=== PATIENT | male | born 1955 | race Caucasian/White ===

== ENCOUNTER 2019-10-22 18:58 | Emergency (ER) | payer MEDICAID, SELFPAY ==
[2019-10-22 18:58] VITALS: BP 113/88; PULSE 131; RESP 17; TEMP 38.2; O2SAT 94; BMI 21.8
--- NOTE | 2019-10-22 19:16 | EKG12_ITS ---
Test Reason : COUGH Blood Pressure : / mmHG Vent. Rate : 105 BPM Atrial Rate : 105 BPM P-R Int : 122 ms QRS Dur : 124 ms QT Int : 368 ms P-R-T Axes : 082 096 052 degrees QTc Int : 486 ms Sinus tachycardia Biatrial enlargement Right bundle branch block Abnormal ECG Confirmed by BATSHEVA SANTIAGO, SHIRA ([id number]), electronic news gathering editor DIANA RIZO ([id number] on 10/26/2019 3:45:45 PM Referred By: JUSTIN RINCON Confirmed By:SHIRA HERMAN MD
--- NOTE | 2019-10-22 19:23 | ED.RN ---
no old ekgs in [facility]
[2019-10-22] MEDS: Ipratropium/Albuterol Sulfate 3 ML AMPUL.NEB INHALATION (19:28)
[2019-10-22 19:29] VITALS: PULSE 111; RESP 18
[2019-10-22] MEDS: MethylPREDNISolone 125 MG/2 ML Vial IV (19:44)
[2019-10-22] MEDS: Ondansetron 4 MG/2 ML Vial IV (19:44)
[2019-10-22] MEDS: Morphine 4 MG/ML Syringe IV (19:44)
[2019-10-22] MEDS: 0.9% Normal Saline 1,000 ML 999 ML IV (19:47)
[2019-10-22 19:50] LABS: Absolute Lymphocyte Count 0.92 X10^3/uL (0.83-4.51); Absolute Neutrophil Count 3.9 X10^3/uL (2.0-7.7); Basophil# 0.01 X10^3/uL; Basophil% 0.2 % (0-1); Hematocrit 44.5 % (40-54); Hemoglobin 14.8 g/dL (13.0-16.5); Lymphocyte # 0.92 X10^3/ul (4.0); Lymphocyte % 17.8 % (19-41); Mean Corp Hgb Conc 33.3 g/dL (32-36); Mean Corpuscular Hgb 29.5 pg (27.0-32.0); Mean Corpuscular Volume 88.8 fL (80-94); Mean Platelet Vol. 11.3 fl (6.2-12.0); Monocyte# 0.38 X10^3/uL; Monocyte% 7.3 % (0-10); NRBC Flagged by Analyzer 0 % (0-5); Neutrophil # 3.85 X10^3/uL (2.7-7.7); Neutrophil % 74.3 % (47-70); POSITIVE MORPHOLOGY YES; Platelet Count 137 K/mm3 (150-450); RBC Distribution Width CV 14.6 % (11.6-14.6); RBC Distribution Width SD 47.8 fl (35.1-43.9); Red Blood Count 5.01 M/mm3 (4.6-6.2); White Blood Count 5.2 K/mm3 (4.4-11.0)
[2019-10-22 19:53] LABS: Differential Indicated SCAN CRITERIA MET
--- NOTE | 2019-10-22 20:10 | RAD_ITS ---
STUDY: X-RAY CHEST REASON FOR EXAM: Male, 63 years old. PT ARRIVES TO ED WITH FLU LIKE S/S. COUGH, SINUS CONGESTION, AND SORE THROAT. TECHNIQUE: Frontal and lateral views COMPARISON: None. FINDINGS: The lungs are clear and expanded. There is no demonstrated pleural abnormality. Normal size heart. Normal mediastinum and akhil. Normal visualized pulmonary arteries. Normal visualized aortic arch and descending thoracic aorta. Normal visualized thoracic spine. Normal visualized ribs, clavicles, and shoulders. There is no demonstrated abnormality of the visualized soft tissue structures of the upper abdomen. RAD/Chest PA and Lateral IMPRESSION: Normal x-ray examination of the chest. Electronically Signed: Max Navarrete DO at 20:27 EST Tel [phone], Service support ,
[2019-10-22 20:11] LABS: Anion Gap 8 (5-15); BUN 22 mg/dL (7-18); BUN/Creat Ratio 18.8 RATIO (10-20); Calcium,Total 9.1 mg/dL (8.5-10.1); Chloride 101 mmol/L (98-107); Creatinine, Serum 1.17 mg/dL (0.70-1.30); EST Glomerular Filtration Rate 67 mL/min (>60); Est Glom Filt Rate - Afr Amer 81 mL/min (>60); Estimated Creatinine Clearance 61.24 ml/min; Glucose 196 mg/dL (74-106); Sodium Level 135 mmol/L (136-145)
[2019-10-22 20:28] LABS: Platelet Estimate ADEQUATE (ADEQ); Red Cell Morphology NORM C+C NORMAL (NORM C&C)
--- NOTE | 2019-10-22 20:43 | ED.VISSUMM ---
- ER Visit Summary Date of Service: 10/22/19 Chief Complaint: Cough History of Present Illness: The patient is a [address] Dhaliwal. He reports he has a cough began 2 days ago. He denies any fever or chills. However he has had diffuse myalgias. Reports cough is nonproductive. Does report he has mild shortness of breath is relieved with his albuterol. He also has a headache that is 8 out of 10 in severity and a sore throat that is from coughing. Physical Examination: Vitals: Stable. Afebrile. General: Well-nourished and well-developed. Head: Normocephalic atraumatic. Neck: Supple, no lymphadenopathy. No JVD. Nontender. Cardiovascular: Regular rate and rhythm. No murmurs. Respiratory: No respiratory distress. Mild wheezing bilaterally with good air movement. Abdominal: Soft, nontender, nondistended, normal bowel sounds. No guarding, rebound, or peritoneal signs. Back: Nontender. Extremities: Nontender, no edema. Skin: Normal color, no rash. Neurologic: Alert and oriented ?3. Cranial nerves II through XII are intact. Normal strength and sensation. Psych: Normal affect. Test Results: EKG sinus tach [address] changes and bilateral atrial enlargement. Troponin is negative. He is positive for influenza A. Lactic acid is 2.0. Chem-7 shows sodium 135, BUN 22, glucose 196. CBC shows platelets 137, segmented for 74, lymphocytes of 18. Chest x-ray is normal. Emergency Department Course and Treatment: Patient was given a liter of normal saline. He was given a albuterol and Atrovent aerosol. He was given Solu-Medrol IV. He is given morphine IV and Zofran IV. He is resting more comfortably. He is given Tamiflu p.o. Treatment Plan: Patient be discharged on Tamiflu and prednisone. Instructed to follow-up with his primary care physician 1 week if not improving. Return to the emergency department for any worsening symptoms. Disposition: To home in improved and stable condition. Impression: 1. Influenza A. 2. COPD. This note was generated with [employer] software. It may contain incorrect words, spelling, and punctuation that were not noted in review of the chart prior to signing ED Disposition - Plan for ED Patient: Disposition: Home or Assisted Living Instructions: INFLUENZA (Adult) Prescriptions: Prednisone [Deltasone] 60 mg PO DAILY #15 tab Prescription Printed Oseltamivir Phosphate [Tamiflu] 75 mg PO BID #10 cap Prescription Printed Referrals: Jamir Dhaliwal [Primary Care Provider] - 1 Week if not improving
[2019-10-22] MEDS: Oseltamivir Phosphate 75 MG Capsule PO (21:03)
[2019-10-22 21:04] VITALS: BP 112/73; PULSE 97; RESP 18; O2SAT 93
== END 2019-10-22 21:12 | disposition home or self-care (01) ==
LOC: ED 19:27
PROVIDERS: Emergency Provider Emergency Medicine
DX: J11.1 Influenza due to unidentified influenza virus with other respiratory manifestations (principal); J44.9 Chronic obstructive pulmonary disease, unspecified; E11.9 Type 2 diabetes mellitus without complications; Z79.84 Long term (current) use of oral hypoglycemic drugs; Z79.01 Long term (current) use of anticoagulants; Z72.0 Tobacco use
CPT/HCPCS: 36415; 71046; 80048; 83605; 84484; 85025; 87040; 87804; 93005; 94640; 96361; 96374; 96375; 99285; J7030; A4216; J2405

== ENCOUNTER 2023-02-06 11:15 | Emergency (ER) | payer MEDICARE, MEDICAID, SELFPAY ==
[2023-02-06 11:16] VITALS: BP 147/78; PULSE 95; RESP 16; TEMP 36.2; O2SAT 100; BMI 19.6
--- NOTE | 2023-02-06 11:45 | RAD_ITS ---
STUDY: X-RAY - RIGHT SHOULDER REASON FOR EXAM: Male, 67 years old. pain TECHNIQUE: 4 view(s) of the shoulder. COMPARISON: None. FINDINGS: There is mild degenerative arthrosis of the glenohumeral articulation. There is degenerative arthrosis of the acromioclavicular joint without inferior osseous spur formation. Normal acromion. Normal humeral head and visualized proximal humerus. The soft tissue structures are unremarkable. Normal visualized pulmonary apex. RAD/Shoulder min 2 Views IMPRESSION: Mild, age consistent degenerative changes, no acute findings Electronically Signed: Albert Hennessy MD at 12:05 EDT ,
[2023-02-06] MEDS: Ketorolac 10 MG Tablet PO (12:53)
--- NOTE | 2023-02-06 13:23 | EX.ED.UPPERE ---
HPI History of Present Illness Chief Complaint: Upper Extremity Injury Narrative Narrative: 67-year-old male presenting with right shoulder pain. He states it is nontraumatic in nature. Has had it for weeks. He states he woke up with it one day. He describes it as burning. It radiates from the trapezius into the deltoid region. He states he has limited range of motion secondary to pain. He states he just saw his PCP about a week ago and had an injection into the shoulder and he states it lasted about an hour. Patient states that he does not use ibuprofen because he is on blood thinners. Patient also states he does not use Tylenol because he states it does not work. When asked what other pain medications the patient has tried he states none. He also states he is not on any other pain medications. PFSH PFSH Medical History no medical history Home Medications apixaban 5 mg tablet (Eliquis) 5 mg PO BID 03/02/17 [History Last Taken Unknown] albuterol sulfate 90 mcg/actuation aerosol inhaler 1 - 2 puff inhalation Q6H PRN PRN COPD 10/22/19 [History Last Taken Unknown] glimepiride 2 mg tablet 2 mg PO DAILY 10/22/19 [History Last Taken Unknown] metformin 500 mg tablet 500 mg PO BID 10/22/19 [History Last Taken Unknown] oseltamivir 75 mg capsule 75 mg PO BID #10 caps 10/22/19 [Rx Last Taken Unknown] pioglitazone 45 mg tablet 45 mg PO DAILY 10/22/19 [History Last Taken Unknown] prednisone 20 mg tablet 60 mg PO DAILY #15 tabs 10/22/19 [Rx Last Taken Unknown] tiotropium bromide 18 mcg capsule with inhalation device 1 puff inhalation DAILY 10/22/19 [History Last Taken Unknown] Allergy/AdvReac Type Severity Reaction Status Date / Time tramadol Allergy Other Verified 02/06/23 11:17 Surgical History no surgical history Social History Smoking Status: Current every day smoker tobacco type: cigarettes ROS ROS ED Review of Systems ROS Unobtainable: Denies due to encephalopathy Constitutional Constitutional ED: Denies chills or fever(s) Eyes Eyes: Denies change in vision or diplopia ENT ENT ED: Denies rhinorrhea or sore throat Cardiovascular Cardiovascular: Denies chest pain or palpitations Respiratory/Chest Respiratory/Chest: Denies cough or dyspnea Gastrointestinal Gastrointestinal: Denies abdominal pain, constipation or diarrhea Genitourinary Genitourinary ED: Denies dysuria or hematuria Musculoskeletal Musculoskeletal: Reports other Details: Right shoulder pain Integumentary Denies abscess or Abrasions EXAM Physical Exam Const Vital Signs: 02/06/23 11:16 Temperature 97.1 F L Temperature Source Temporal Pulse Rate 95 Respiratory Rate 16 Blood Pressure 147/78 H Blood Pressure Mean 101 Pulse Ox 100 Oxygen Delivery Method Room Air Positive well nourished General Appearance ED: NAD HEENT Reports moist mucous membranes normocephalic and atraumatic Eyes PERRL Chest Wall inspection of chest normal Resp normal respiratory effort and clear to auscultation bilaterally Cardio regular rate and regular rhythm Extremity Extremity Narrative: Tenderness to palpation over the right deltoid. Patient able to flex and extend the shoulder. He has pain with abduction and and stops about mcc up with his elbow secondary to pain. Tenderness to palpation in the right trapezius. No midline cervical spinal tenderness, deformity, step-off. Neuro oriented x3 and CN's II-XII intact bilaterally Sensorium / Orientation: alert Motor Exam: strength 5/5 throughout Psych mental status grossly normal MDM MDM MDM Narrative Medical decision making narrative: Patient presenting with right shoulder pain. He states he is not on any chronic pain medications. He can only name a couple of his medicines for home. He states he is diabetic. His exam is difficult because he refuses to try to move his arm although he can flex and extend it well. Abduction seems to hurt however he mostly just holds this to his side. Since he could not tell me his medications I went to review them and his [facility] report shows that he gets buprenorphine from a pain management doctor named Esther Rice. I would like to discuss this with the patient and he became angry at me stating I came in here for my shoulder pain and you cannot help me. I explained to them that he is in pain management and I would need them to be involved in order to write him prescriptions for anything. I did give him a shot of Toradol. I paged his automotive paint technician. I spoke with Dr. Rice at 2:15 PM however I was told that the patient had just walked out. I went over the case with his automotive paint technician. She states that he had not called her at all over the last 3 weeks for any kind of pain medicine or treatment. She recommended that if he walked out then she will wait for his call and did not recommend ordering him anything. Impression: 1. Right shoulder pain Lab Data Attestation: I reviewed the patient's lab results. Radiography Diagnostic Testing: Clinical Impression(s) from Imaging Studies Shoulder X-Ray 02/06/23 11:45 IMPRESSION: Mild, age consistent degenerative changes, no acute findings Electronically Signed: Albert Hennessy MD at 12:05 EDT , Discharge Plan Triage Chief Complaint: Upper Extremity Injury ED Provider: Shad Andres Dx/Rx/DC Orders Prescriptions: No Action apixaban [Eliquis] 5 MG tablet 5 mg PO BID metformin 500 MG tablet 500 mg PO BID pioglitazone 45 MG tablet 45 mg PO DAILY glimepiride 2 MG tablet 2 mg PO DAILY albuterol sulfate 1 INHALER inhaler 1 - 2 puff inhalation Q6H PRN PRN (Reason: COPD) tiotropium bromide 1 PUFF inhaler 1 puff inhalation DAILY prednisone 20 MG tablet 60 mg PO DAILY Qty: 15 0RF Rx Instructions: With food oseltamivir 75 MG capsule 75 mg PO BID Qty: 10 0RF Primary Care Provider: RENEA CORTES Referrals: RENEA CORTES [Other]
--- NOTE | 2023-02-06 14:11 | ED.RN ---
1400: Patient states he's leaving. Dr. Andres notified.
--- NOTE | 2023-02-06 14:16 | ED.RN ---
THIS RN MADE AWARE BY PERSONNEL PSYCHOLOGIST THAT PT STANDING IN HIS DOORWAY THREATENING TO LEAVE. THIS RN ROUNDS TO PT ROOM, WHERE ROOM IS EMPTY AND PT IS NO LONGER PRESENT. DR. AGUSTIN AWARE.
== END 2023-02-06 14:33 | disposition left against medical advice (07) ==
PROVIDERS: Emergency Provider Student in an Organized Health Care Education/Training Program; Visit Provider Student in an Organized Health Care Education/Training Program
DX: M25.511 Pain in right shoulder (principal); F17.210 Nicotine dependence, cigarettes, uncomplicated
CPT/HCPCS: 73030

== ENCOUNTER 2023-02-16 00:13 | Emergency (ER) | payer MEDICARE, MEDICAID, SELFPAY ==
[2023-02-16 00:16] VITALS: BP 140/70; PULSE 97; RESP 18; TEMP 36.5; O2SAT 96; BMI 18.8
--- NOTE | 2023-02-16 00:47 | CT_ITS ---
We are attempting to reach an attending provider to discuss findings. An addendum with communication details will be sent when the communication is complete. STUDY: CT BRAIN WITHOUT CONTRAST REASON FOR EXAM: Male, 67 years old. Head injury RADIATION DOSAGE (If Supplied By Facility): CTDIvol = ( 44.99 ) mGy, DLP = ( 779.24 ) mGycm TECHNIQUE: Transaxial CT imaging of the brain was performed without administration of intravenous contrast material. Individualized dose optimization techniques were used for this CT. COMPARISON: No relevant priors. FINDINGS: Normal soft tissue structures. Normal calvarium. There is mild cerebral atrophy with widening of the extra-axial spaces and ventricular dilatation. There are areas of decreased attenuation within the white matter tracts of the supratentorial brain, consistent with microvascular disease changes. There is a hyperdense appearance of the right-sided basal ganglia with surrounding edema which appears to be age-indeterminate possible evolving and/or chronic. There is low-attenuation within the right temporal lobe suggesting age-indeterminate edema possible evolving subacute ischemic change. There is effacement of the right side caudate and right frontal horn. Normal brainstem. Normal cerebellum. Normal visualized paranasal sinuses. There is minimal fluid thickening of the right greater than left mastoid air cells. There is dense bilateral external auditory canal cerumen. At the level of the vertebral body C1 there are at least 2 bubbles of gas suggesting probable venous gas possibly associated with IV placement. CT/Brain/Head without Contrast IMPRESSION: Findings is suspicious for 3.3 x 1.7 nonacute age-indeterminate possible evolving right basal ganglia hemorrhage with effacement of the right side frontal horns. There is also low attenuation within the anterior aspect of the temporal lobe which may represent evolving edema and are potentially prior ischemic change. Recommend correlation with any history of hypertension potentially this could represent a hypertensive bleed. Multifocal low attenuation within the basal ganglia compatible with small vessel ischemic change. Electronically Signed: Audra Love MD at 2:15 EDT ,
[2023-02-16 01:07] LABS: Absolute Lymphocyte Count 0.65 X10^3/uL (0.83-4.51); Absolute Neutrophil Count 4.7 X10^3/uL (2.0-7.7); Hematocrit 40.2 % (40-54); Hemoglobin 12.9 g/dL (13.0-16.5); Lymphocyte # 0.65 X10^3/ul (0.83-4.51); Lymphocyte % 11.4 % (19-41); Mean Corp Hgb Conc 32.1 g/dL (32-36); Mean Corpuscular Volume 84.3 fL (80-94); Mean Platelet Vol. 11.8 fl (6.2-12.0); Monocyte# 0.32 X10^3/uL; Monocyte% 5.6 % (0-10); NRBC Flagged by Analyzer 0 % (0-5); Neutrophil # 4.69 X10^3/uL (2.7-7.7); Neutrophil % 82.5 % (47-70); Platelet Count 170 K/mm3 (150-450); RBC Distribution Width CV 15.2 % (11.6-14.6); RBC Distribution Width SD 46.7 fl (35.1-43.9); Red Blood Count 4.77 M/mm3 (4.6-6.2); White Blood Count 5.7 K/mm3 (4.4-11.0)
[2023-02-16] MEDS: 0.9% Normal Saline 1,000 ML 999 ML IV (01:07)
--- NOTE | 2023-02-16 01:20 | RAD_ITS ---
STUDY: X-RAY - PELVIS REASON FOR EXAM: Male, 67 years old. Pain TECHNIQUE: One view of the pelvis was obtained. COMPARISON: None. FINDINGS: There is a non-specific bowel gas pattern. Partially visualized IVC filter. Normal bilateral iliac wings, sacroiliac joints and visualized sacrum. Normal visualized bilateral superior and inferior pubic rami. Normal pubic symphysis. Normal ischial tuberosities. Normal visualized right femoral head. Normal right acetabulum. Normal right hip joint. Normal visualized left femoral head. Normal left acetabulum. Normal left hip joint. There is a metallic device projected over the left proximal femur. RAD/Pelvis 1 or 2 Views IMPRESSION: No visualized acute fracture. Electronically Signed: Audra Love MD at 1:36 EDT ,
[2023-02-16 01:21] LABS: Anion Gap 15 (5-15); BUN 51 mg/dL (7-18); Calcium,Total 9.9 mg/dL (8.5-10.1); Chloride 98 mmol/L (98-107); Creatinine, Serum 1.76 mg/dL (0.70-1.30); EST Glomerular Filtration Rate 41 mL/min (>60); Est Glom Filt Rate - Afr Amer 50 mL/min (>60); Glucose 316 mg/dL (74-106); Potassium 4.1 mmol/L (3.5-5.1); Sodium Level 132 mmol/L (136-145)
[2023-02-16 02:48] LABS: International Normalized Ratio 1.5; Prothrombin Time (Protime)PT. 17.7 SECONDS (11.7-14.9)
[2023-02-16 03:02] VITALS: BP 121/71; PULSE 77; RESP 18; O2SAT 97
--- NOTE | 2023-02-16 03:51 | EX.ED.DYSGE1 ---
HPI History of Present Illness Chief Complaint: Fall Informant: patient Narrative Narrative: Patient is a 67-year-old male with past medical history of protein C&S deficiency currently on Eliquis as well as type 2 diabetes. He states around 1130 this evening he was putting his phone down in his living room when he turned and lost his balance and fell to the ground. He denies striking his head or any loss of consciousness. He states he could not get back up however and likely a friend came by roughly 10 minutes later who was able to help him up and help him into the emergency department. Patient reports pain in his elbows at this time but otherwise denies any headache change in vision nausea or vomiting but with the fall and the fact he is on a blood thinner presents for evaluation. [facility] Medical History Diabetes mellitus, type 2 History of DVT (deep vein thrombosis) Protein S deficiency Medical History unable to obtain Home Medications apixaban 5 mg tablet (Eliquis) 5 mg PO BID 03/02/17 [History Last Taken Unknown] albuterol sulfate 90 mcg/actuation aerosol inhaler 1 - 2 puff inhalation Q6H PRN PRN COPD 10/22/19 [History Last Taken Unknown] glimepiride 2 mg tablet 2 mg PO DAILY 10/22/19 [History Last Taken Unknown] metformin 500 mg tablet 500 mg PO BID 10/22/19 [History Last Taken Unknown] oseltamivir 75 mg capsule 75 mg PO BID #10 caps 10/22/19 [Rx Last Taken Unknown] pioglitazone 45 mg tablet 45 mg PO DAILY 10/22/19 [History Last Taken Unknown] prednisone 20 mg tablet 60 mg (3 x 20 mg) PO DAILY #15 tabs 10/22/19 [Rx Last Taken Unknown] tiotropium bromide 18 mcg capsule with inhalation device 1 puff inhalation DAILY 10/22/19 [History Last Taken Unknown] Allergy/AdvReac Type Severity Reaction Status Date / Time tramadol Allergy Other Verified 02/06/23 11:17 Family History (Updated 02/16/23 @ 01:[address] Valentina Rice MD) Mother CAD (coronary artery disease) Father CAD (coronary artery disease) Social History (Updated 02/16/23 @ 01:[address] Valentina Rice MD) Smoking Status: Current every day smoker tobacco type: cigarettes alcohol intake: never substance use type: does not use ROS ROS ED Constitutional Constitutional ED: Denies chills or fever(s) Eyes Eyes: Denies change in vision ENT ENT ED: Denies sore throat Cardiovascular Cardiovascular: Denies chest pain, palpitations or racing heartbeat Respiratory/Chest Respiratory/Chest: Denies cough or dyspnea Gastrointestinal Gastrointestinal: Denies abdominal pain, diarrhea, nausea or vomiting Genitourinary Genitourinary ED: Denies dysuria Musculoskeletal Musculoskeletal: Reports back pain; Denies neck pain Integumentary Reports Abrasions Neurologic Neurologic: Denies headache(s) or paresthesias Hematologic/Lymphatic Hematologic/Lymphatic: Reports easy bleeding and easy bruising EXAM Physical Exam Const Vital Signs: 02/16/23 00:16 02/16/23 01:01 02/16/23 03:02 Temperature 97.7 F L Temperature Source Temporal Pulse Rate 97 77 Respiratory Rate 18 18 Respiratory Effort Normal Non-Labored Respiratory Depth Normal Respiratory Pattern Normal Blood Pressure 140/70 H 121/71 H Blood Pressure Mean 93 87 Pulse Ox 96 97 Oxygen Delivery Method Room Air Room Air Room Air Positive well nourished and well developed General Appearance ED: well developed HEENT Reports dry mucous membranes HEENT Narrative: Normocephalic atraumatic No signs of depressed or basilar skull fracture Mouth ED: Yes dry mucous membranes Mouth: dry mucous membranes Eyes PERRL and EOMs intact bilaterally Neck supple Neck Narrative: No bony deformity or step-off of the cervical spine no midline pain with palpation Chest Wall palpation of chest normal Chest Narrative: No bony deformity or crepitance noted Resp normal respiratory effort Resp Narrative: Breath sounds are diminished throughout with faint expiratory wheeze in the bilateral lobes without signs of respiratory distress Cardio regular rate and regular rhythm Rate: other Other Details: Radial pulses are plus 2 out of 4 bilaterally are equal and symmetric GI non-tender and non-distended GI Narrative: Abdomen is soft nontender nondistended with hypoactive bowel sounds. No voluntary guarding or rigidity no pulsatile mass or fluid wave Auscultation: hypoactive bowel sounds Palpation: soft Back/Spine Back/Spine Narrative: No bony deformity or step-off of the thoracic or lumbar spine Extremity normal to inspection Extremity Narrative: Pelvis is stable there is no shortening or external rotation of either lower extremity Neuro oriented x3 Neuro Narrative: Patient has GCS of 15. He is slightly slow to respond. He received an NIH stroke scale score of 4. He has mild left-sided facial droop. There is left arm weakness compared to the with mild drift. There is also mild left-sided leg weakness compared to right also with mild drift and patient has mild dysarthria. Sensorium / Orientation: alert Psych mental status grossly normal Skin no rashes or lesions noted Skin Narrative: No abrasions or ecchymosis noted MDM MDM MDM Narrative Medical decision making narrative: Patient presented to the ER with stable vitals he is awake alert and oriented protecting his airway. He reported a mechanical fall. However he is a diabetic and his blood sugar was elevated in order to ensure that he is not in DKA or HHS I did elect to perform basic laboratory studies. He has no signs of head injury but with the report of fall and the fact he is on a blood thinner and now has mild neurologic deficits there is concern for underlying brain bleed so a CT was obtained. Patient's labs revealed no clinically significant findings other than his sugar elevated at 316 but his anion gap is normal going against DKA and his serum osmolality is 300 going against HHS. The patient CT scan did reveal a basal ganglia bleed and secondary to this the case was discussed with neurosurgery at [facility]. They request patient be given Kcentra secondary to his history of Eliquis use. They feel that there is no need for emergent neurosurgical intervention but request that he be sent to their neuro ICU for further observation. The patient has remained with a GCS of 15 and is protecting his airway and therefore there is no need for intubation. However with his new onset brain bleed and neurologic deficits he will be sent to [facility] for further care History & Record Review Discussion w/independent historian: Patient Lab Data Attestation: I reviewed the patient's lab results. Labs: Laboratory Results - last 24 hr 02/16/23 02/16/23 00:50 02:35 WBC 5.7 RBC 4.77 Hgb 12.9 L Hct 40.2 MCV 84.3 MCH 27.0 MCHC 32.1 RDW Std Deviation 46.7 H RDW Coeff of Rober 15.2 H Plt Count 170 MPV 11.8 Immature Gran % (Auto) 0.500 Neut % (Auto) 82.5 H Lymph % (Auto) 11.4 L [place] % (Auto) 5.6 Eos % (Auto) 0.0 Baso % (Auto) 0.0 Absolute Neuts (auto) 4.7 Absolute Lymphs (auto) 0.65 L Nucleated RBC % 0 PT 17.7 H INR 1.5 APTT 29.0 Sodium 132 L Potassium 4.1 Chloride 98 Carbon Dioxide 19.0 L Anion Gap 15 BUN 51 H Creatinine 1.76 H Estim Creat Clear Calc 33.30 Est GFR (MDRD) Af Amer 50 L Est GFR (MDRD) Non-Af 41 L BUN/Creatinine Ratio 29.0 H Glucose 316 H Calcium 9.9 Radiography Diagnostic Testing: Clinical Impression(s) from Imaging Studies Brain CT 02/16/23 00:47 IMPRESSION: Findings is suspicious for 3.3 x 1.7 nonacute age-indeterminate possible evolving right basal ganglia hemorrhage with effacement of the right side frontal horns. There is also low attenuation within the anterior aspect of the temporal lobe which may represent evolving edema and are potentially prior ischemic change. Recommend correlation with any history of hypertension potentially this could represent a hypertensive bleed. Multifocal low attenuation within the basal ganglia compatible with small vessel ischemic change. Electronically Signed: Audra Love MD at 2:15 EDT , ADDENDUM: 02/16/23 0229 IMPRESSION: Findings is suspicious for 3.3 x 1.7 nonacute age-indeterminate possible evolving right basal ganglia hemorrhage with effacement of the right side frontal horns. There is also low attenuation within the anterior aspect of the temporal lobe which may represent evolving edema and are potentially prior ischemic change. Recommend correlation with any history of hypertension potentially this could represent a hypertensive bleed. Multifocal low attenuation within the basal ganglia compatible with small vessel ischemic change. N.B. : The above Results were Read Back by Audra Love MD to Juan C Rosa DO, and understanding confirmed on 02/16/2023 02:22:08 (ET). Electronically Signed: Audra Love MD at 2:15 EDT , Pelvis X-Ray 02/16/23 01:20 IMPRESSION: No visualized acute fracture. Electronically Signed: Audra Love MD at 1:36 EDT , Pelvis x-ray as interpreted by the emergency medicine physician reveals no acute fracture or dislocation Management Discussion w/another healthcare provider: Drying Machine Operator and Radiologist Discharge Plan Triage Chief Complaint: Fall ED Provider: Juan C Rosa Dx/Rx/DC Orders Clinical Impression: Type 2 diabetes mellitus, Current use of retirement anticoagulation, Protein S deficiency, Basal ganglia hemorrhage Prescriptions: No Action apixaban [Eliquis] 5 MG tablet 5 mg PO BID metformin 500 MG tablet 500 mg PO BID pioglitazone 45 MG tablet 45 mg PO DAILY glimepiride 2 MG tablet 2 mg PO DAILY albuterol sulfate 1 INHALER inhaler 1 - 2 puff inhalation Q6H PRN PRN (Reason: COPD) tiotropium bromide 1 PUFF inhaler 1 puff inhalation DAILY prednisone 20 MG tablet 60 mg PO DAILY Qty: 15 0RF Rx Instructions: With food oseltamivir 75 MG capsule 75 mg PO BID Qty: 10 0RF Primary Care Provider: RENEA CORTES Referrals: RENEA CORTES [Other] Disposition Disposition: Acute Care Hospital Discharge Location: [facility]
[2023-02-16 04:09] VITALS: BP 109/69; PULSE 75; RESP 18; O2SAT 96
[2023-02-16 04:10] VITALS: BP 109/69; PULSE 73; RESP 16; O2SAT 96
[2023-02-16 04:39] VITALS: BP 119/72; PULSE 71; RESP 16; O2SAT 98
--- NOTE | 2023-02-16 04:46 | ED.RN ---
report called to Wayne at [facility] ICU
[2023-02-16 05:37] LABS: Bedside Glucose 131 mg/dL (74-106)
== END 2023-02-16 05:13 | disposition short-term general hospital (02) ==
PROVIDERS: Emergency Provider Emergency Medicine; Visit Provider Emergency Medicine
DX: E11.9 Type 2 diabetes mellitus without complications (principal); I61.0 Nontraumatic intracerebral hemorrhage in hemisphere, subcortical; D68.59 Other primary thrombophilia; F17.210 Nicotine dependence, cigarettes, uncomplicated; Z79.01 Long term (current) use of anticoagulants; W19.XXXA Unspecified fall, initial encounter; Z86.718 Personal history of other venous thrombosis and embolism
CPT/HCPCS: 70450; 72170; 80048; 82962; 85025; 85610; 85730; 96361; 96365; 96368; 99285; J7030; J7168; A4216; J3490

== ENCOUNTER 2023-02-22 13:58 | Inpatient (IN) | payer MEDICARE, MEDICAID, SELFPAY ==
[2023-02-22 14:11] VITALS: BP 140/69; PULSE 89; RESP 18; TEMP 36.6; O2SAT 98
[2023-02-22] MEDS: Acetaminophen 500 MG Tablet 1000 MG PO ×2 (16:26→21:26)
[2023-02-22 17:13] LABS: Bedside Glucose 196 mg/dL (74-106)
[2023-02-22] MEDS: Ergocalciferol 1.25 MG (50, 000 UNIT) Capsule PO (18:41)
[2023-02-22 19:00] VITALS: BP 130/88; PULSE 86; RESP 15; TEMP 36.6; O2SAT 99
[2023-02-22] MEDS: Amox/Clavulanate 875 MG Tablet PO (21:27)
[2023-02-22] MEDS: Ascorbic Acid 500 MG Tablet PO (21:27)
[2023-02-22] MEDS: Senna/Docusate Sodium 1 Tablet 2 TABLET PO (21:27)
[2023-02-22 23:48] LABS: Bedside Glucose 219 mg/dL (74-106)
[2023-02-23] MEDS: Ascorbic Acid 500 MG Tablet PO ×3 (05:14→21:59)
[2023-02-23] MEDS: Acetaminophen 500 MG Tablet 1000 MG PO ×3 (05:14→21:58)
[2023-02-23 07:23] VITALS: O2SAT 97
[2023-02-23 07:25] LABS: Bedside Glucose 174 mg/dL (74-106)
[2023-02-23 07:39] LABS: Absolute Lymphocyte Count 1.44 X10^3/uL (0.83-4.51); Absolute Neutrophil Count 4.9 X10^3/uL (2.0-7.7); Basophil# 0.01 X10^3/uL; Basophil% 0.1 % (0-1); Eosinophil# 0.03 X10^3/uL; Eosinophils% 0.4 % (0-5); Hematocrit 37.8 % (40-54); Hemoglobin 12.1 g/dL (13.0-16.5); Lymphocyte # 1.44 X10^3/ul (0.83-4.51); Lymphocyte % 21.3 % (19-41); Mean Corpuscular Hgb 27.1 pg (27.0-32.0); Mean Corpuscular Volume 84.6 fL (80-94); Mean Platelet Vol. 11.2 fl (6.2-12.0); Monocyte# 0.36 X10^3/uL; Monocyte% 5.3 % (0-10); NRBC Flagged by Analyzer 0 % (0-5); Neutrophil # 4.88 X10^3/uL (2.7-7.7); Neutrophil % 72.2 % (47-70); Platelet Count 200 K/mm3 (150-450); RBC Distribution Width SD 46.1 fl (35.1-43.9); Red Blood Count 4.47 M/mm3 (4.6-6.2); White Blood Count 6.8 K/mm3 (4.4-11.0)
[2023-02-23 08:09] LABS: ALB/GLOB Ratio 0.8 RATIO (0.9-2.4); AST(SGOT) 19 U/L (15-37); Alanine Aminotransfer ALT/SGPT 21 U/L (16-61); Albumin, Serum 3.2 g/dL (3.2-5.0); Alkaline Phosphatase 97 U/L (45-117); Anion Gap 8 (5-15); BUN 12 mg/dL (7-18); Chloride 105 mmol/L (98-107); Creatinine, Serum 0.63 mg/dL (0.70-1.30); EST Glomerular Filtration Rate 134 mL/min (>60); Est Glom Filt Rate - Afr Amer 162 mL/min (>60); Globulin 3.8 g/dL (2.2-4.2); Glucose 182 mg/dL (74-106); Potassium 3.6 mmol/L (3.5-5.1); Sodium Level 138 mmol/L (136-145)
[2023-02-23 08:13] LABS: Phosphorus 2.2 mg/dL (2.5-4.9)
[2023-02-23 08:19] VITALS: BP 150/60; PULSE 78; RESP 14; TEMP 36.6; O2SAT 94
[2023-02-23] MEDS: Umeclidinium Bromide Inhaler 1 PUFF INHALATION (08:35)
[2023-02-23] MEDS: Aspirin 81 MG TAB.CHEW PO (08:38)
[2023-02-23] MEDS: Senna/Docusate Sodium 1 Tablet 2 TABLET PO ×2 (08:38→21:59)
[2023-02-23] MEDS: Pioglitazone Hydrochloride 45 MG Tablet PO (08:39)
[2023-02-23] MEDS: LINAGLIPTIN 5 MG TABLET PO (08:39)
[2023-02-23 09:14] LABS: Hemoglobin A1c 7.5 % (3.8-5.6)
[2023-02-23] MEDS: Amox/Clavulanate 875 MG Tablet PO ×2 (11:04→21:58)
[2023-02-23 11:52] LABS: Bedside Glucose 340 mg/dL (74-106)
[2023-02-23] MEDS: Glucerna Shake 120 ML LIQUID PO (11:53)
[2023-02-23 12:59] LABS: Bedside Glucose 396 mg/dL (74-106)
[2023-02-23] MEDS: oxyCODONE 5 MG Tablet PO (15:18)
[2023-02-23 16:00] VITALS: BMI 17.8
[2023-02-23 16:08] VITALS: BMI 17.8
[2023-02-23] MEDS: Insulin Lispro 100 UNIT/ML INSULN.PEN SC ×2 (17:54→21:53)
[2023-02-23 17:57] LABS: Bedside Glucose 321 mg/dL (74-106)
[2023-02-23 21:30] VITALS: PULSE 80; RESP 15; O2SAT 97; BMI 17.8
[2023-02-23] MEDS: BUPRENORPHINE 15 MCG/HR PATCH 1 EACH TD (21:57)
[2023-02-23] MEDS: Atorvastatin Calcium 40 MG Tablet PO (21:58)
[2023-02-23 22:00] VITALS: BP 135/75; PULSE 80; RESP 15; TEMP 36.6; O2SAT 97
[2023-02-23 22:40] LABS: Bedside Glucose 229 mg/dL (74-106)
--- NOTE | 2023-02-24 03:33 | NURSING ---
Reviewed and agree with Melissa HOPPER, documentation and assessment charting.
[2023-02-24] MEDS: Ascorbic Acid 500 MG Tablet PO ×3 (05:29→21:04)
[2023-02-24] MEDS: Acetaminophen 500 MG Tablet 1000 MG PO ×3 (05:29→21:05)
[2023-02-24 07:14] VITALS: BP 143/82; PULSE 84; RESP 16; TEMP 36.9; O2SAT 96
[2023-02-24 07:23] LABS: Bedside Glucose 222 mg/dL (74-106)
[2023-02-24] MEDS: Glucerna Shake 120 ML LIQUID PO ×3 (08:46→17:04)
[2023-02-24] MEDS: Aspirin 81 MG TAB.CHEW PO (08:47)
[2023-02-24] MEDS: Insulin Lispro 100 UNIT/ML INSULN.PEN SC ×4 (08:47→21:20)
[2023-02-24] MEDS: Umeclidinium Bromide Inhaler 1 PUFF INHALATION (08:48)
[2023-02-24] MEDS: Amox/Clavulanate 875 MG Tablet PO ×2 (08:48→21:04)
[2023-02-24] MEDS: Senna/Docusate Sodium 1 Tablet 2 TABLET PO ×2 (08:48→21:04)
[2023-02-24] MEDS: Pioglitazone Hydrochloride 45 MG Tablet PO (08:48)
[2023-02-24] MEDS: LINAGLIPTIN 5 MG TABLET PO (08:49)
[2023-02-24 11:50] LABS: Bedside Glucose 312 mg/dL (74-106)
[2023-02-24] MEDS: oxyCODONE 5 MG Tablet PO (11:52)
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
--- NOTE | 2023-02-24 14:23 | REHABEVAL_ITS ---
Admission Information Primary Diagnosis:: Post stroke debility Status Changes from Prescreening?: No changes Identified Actual Problem List:: Pain, ALteration in Cmfrt, Cognitve Impr/Memory Loss, Depression, Alteration in Sleep, Mobility Impaired, Self Care Deficit, Diabetes, Hyperglycemia, BP, Hypertension, Alteration/ Air Exchange, Fluid Change- Dehydration and Alteration-Leisure Activ. Potential Problem List:: DVT, Bleeding, Infection, UTI, Aspiration, Falls, Skin Integrity and Depression Risk of Complications DVT: RONA Hose, Sequential Compression Device and - (Heparin 5000 units subcu every 12 hours) Bleeding: Monitor Lab Values, Nursing to Teach Precautions for anti-coagulation therapy., Wound, if applicable, to be assessed every shift. and Stroke patients assessed for lethargy or change in status. Infection: Clinical Staff to Monitor for S/S of infection: and S/S of infection include fever, redness, warmth, etc. Urinary Tract Infection: Monitor for frequency, burning, discomfort, or incontinence. and Nursing will obtain urine sample for urinalysis and C&S when ordered. Aspiration: Clinical staff will monitor for coughing, drooling, congestion., Speech will evaluate swallowing and dsyphasia. and Nursing will monitor patient swallowing during meals. Falls: Patient will be evaluated for Fall Precautions and Patient will be placed on Fall Precautions as indicated per protocol. Skin Breakdown: Nursing will assess skin daily using assessment tool. and Nursing will place on Skin Breakdown Precautions as indicated. Pain: Clinical staff will assess patient's pain level per protocol., Medications will be given, if needed, and the pain level reassessed. and Other methods: Massage, distraction, decrease stimulus, etc. used PRN. Plan of Care Patient requires physician specializing in physical medicine and rehab oversight to provide close medical supervision of rehab issues including: Pain Management, Sleep Problems, Bowel and Bladder, Medical and co-morbidity Management, DVT prophylaxis, Rehabilitation Leadership and Coordination of treatment team Patient needs Physical Therapy: For a minimum of 1 hour and At least 5 out of 7 days Patient needs Physical Therapy to improve:: Mobility, Strengthening, Transfers, Stretching, ROM, Endurance, Stairs, Gait and Balance Patient needs Occupational Therapy: For a minimum of 1 hour and At least 5 out of 7 days Patient needs Occupational Therapy to improve ADL's incl.: Eating, Grooming, Bathing, Dressing, Toileting, Toilet transfers, Community Reintegration, Higher functioning activities, Household tasks, Adaptive Equipment, Splinting and Other activities as determined Patient requires speech therapy: For a minimum of 1 hour and At least 5 out of 7 days Patient requires speech therapy for: Swallowing, Cognition, Language Skills and Compensatory Strategies Patient requires 24/7 Rehabilitation Nursing for: Pain Issues, Identifying and preventing risk factors, Monitoring and reporting current medical conditions, Assisting with ambulation, transfer, and all ADL's, Teaching patients about disease process and medications, Family teaching, Providing safe environment, Bowel and Bladder Issues, Skin integrity and Medication Management Patient needs Annual Giving Officer/ Case Management for: Discharge Planning, Arranging Home Equipment or Services and Family Interventions Patient needs Dietary and Nutrition Services for: Adequate Nutrition, Nutritional Supplements and Nutritional Education Goals Patient will remain: free from falls and or injury at time of discharge. Patient will perform bed mobility at: MOD I level of assist. Patient will complete transfers from bed to chair at: MOD I level of assist. Patient will ambulate: - (350 feet without an assistive device) Patient will complete upper body dressing at: - Patient will complete lower body dressing at: - (Set up/assist) Patient will complete toileting at: Standby Assist. Patient will perform bathing at: - (Will need standby assist for tub/shower transfer at discharge) Patient will complete grooming at: MOD I level of assist. Patient will complete home management skills at: - (Supervision) Patient will achieve: - (1 curb step without assistive device) Patient will have pain level of: of 3 or less Patient's skin will: remain intact Patient will receive: adequate nutrition. Discharge Planning Pt Prognosis for Sig. Practical Improv. w/in Reasonable Time: Good Estimated Length of stay (days): 28 Anticipated D/C Destination: Home with Home Health Was Preadmission Assessment Accurate?: Yes
[2023-02-24 17:00] VITALS: BMI 17.8
[2023-02-24] MEDS: Na Biphos/Potassium Phosphate PACKET 1 PACKET PO ×2 (17:03→21:07)
[2023-02-24] MEDS: metFORMIN HCl 500 MG Tablet PO (17:04)
[2023-02-24 17:13] LABS: Bedside Glucose 234 mg/dL (74-106)
[2023-02-24 17:21] VITALS: O2SAT 95
[2023-02-24 20:30] VITALS: BP 111/64; PULSE 81; RESP 12; TEMP 36.3; O2SAT 96; BMI 17.8
[2023-02-24] MEDS: Heparin Injection (Vial) 5,000 UNIT/ML VIAL 5000 UNIT SC (21:03)
[2023-02-24] MEDS: Mirtazapine 15 MG Tablet PO (21:05)
[2023-02-24] MEDS: Atorvastatin Calcium 40 MG Tablet PO (21:05)
[2023-02-24 21:47] LABS: Bedside Glucose 276 mg/dL (74-106)
[2023-02-25] MEDS: Ascorbic Acid 500 MG Tablet PO ×3 (07:05→20:10)
[2023-02-25] MEDS: Acetaminophen 500 MG Tablet 1000 MG PO ×3 (07:05→20:09)
[2023-02-25 07:39] LABS: Bedside Glucose 190 mg/dL (74-106)
[2023-02-25 08:09] VITALS: BP 117/76; PULSE 88; RESP 15; TEMP 36.8; O2SAT 95
[2023-02-25] MEDS: Insulin Lispro 100 UNIT/ML INSULN.PEN SC ×4 (09:04→17:29)
[2023-02-25] MEDS: Aspirin 81 MG TAB.CHEW PO (09:05)
[2023-02-25] MEDS: Glucerna Shake 120 ML LIQUID PO ×3 (09:05→17:29)
[2023-02-25] MEDS: metFORMIN HCl 500 MG Tablet PO (09:05)
[2023-02-25] MEDS: Amox/Clavulanate 875 MG Tablet PO ×2 (09:06→20:10)
[2023-02-25] MEDS: Heparin Injection (Vial) 5,000 UNIT/ML VIAL 5000 UNIT SC ×2 (09:06→20:10)
[2023-02-25] MEDS: Umeclidinium Bromide Inhaler 1 PUFF INHALATION (09:06)
[2023-02-25] MEDS: Pioglitazone Hydrochloride 45 MG Tablet PO (09:06)
[2023-02-25] MEDS: Na Biphos/Potassium Phosphate PACKET 1 PACKET PO ×4 (09:07→20:12)
[2023-02-25] MEDS: Senna/Docusate Sodium 1 Tablet 2 TABLET PO ×2 (09:07→20:10)
[2023-02-25 09:41] VITALS: PULSE 78; RESP 12; O2SAT 96
[2023-02-25] MEDS: oxyCODONE 5 MG Tablet PO (10:26)
--- NOTE | 2023-02-25 10:35 | NURSING ---
Patient unable to complete morning OT at 10 am due to headache. Noted severity of pain to be 6/10. Given PRN oxir for headache. Advised doctor of this due to same headache same time yesterday. Patient is lying in bed and resting at this time. Therapy stopped at 1030 am. Therapist states she will resume therapy later if patient is tolerating this.
[2023-02-25 11:23] LABS: Bedside Glucose 410 mg/dL (74-106)
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
--- NOTE | 2023-02-25 15:02 | NURSING ---
[address] Teixeira made aware. Changes made to medications.
[2023-02-25 16:42] LABS: Bedside Glucose 271 mg/dL (74-106)
[2023-02-25 17:00] VITALS: BMI 17.8
[2023-02-25 20:00] VITALS: BP 104/64; PULSE 91; RESP 18; TEMP 36.7; O2SAT 97; BMI 17.8
[2023-02-25] MEDS: Mirtazapine 15 MG Tablet PO (20:10)
[2023-02-25] MEDS: Atorvastatin Calcium 40 MG Tablet PO (20:10)
[2023-02-25] MEDS: Insulin Glargine-YFGN 100 UNIT/ML Pen 15 UNIT SC (20:12)
[2023-02-25 20:49] LABS: Bedside Glucose 149 mg/dL (74-106)
[2023-02-26] MEDS: Ascorbic Acid 500 MG Tablet PO ×3 (05:20→20:49)
[2023-02-26] MEDS: Acetaminophen 500 MG Tablet 1000 MG PO ×3 (05:20→20:48)
[2023-02-26] MEDS: oxyCODONE 5 MG Tablet PO (06:46)
[2023-02-26 07:18] LABS: Bedside Glucose 193 mg/dL (74-106)
[2023-02-26 07:47] VITALS: BP 131/80; PULSE 98; RESP 16; TEMP 37.1; O2SAT 92
[2023-02-26] MEDS: Insulin Lispro 100 UNIT/ML INSULN.PEN SC ×6 (08:19→16:59)
[2023-02-26] MEDS: Amox/Clavulanate 875 MG Tablet PO ×2 (08:20→20:49)
[2023-02-26] MEDS: Aspirin 81 MG TAB.CHEW PO (08:20)
[2023-02-26] MEDS: Umeclidinium Bromide Inhaler 1 PUFF INHALATION (08:21)
[2023-02-26] MEDS: Heparin Injection (Vial) 5,000 UNIT/ML VIAL 5000 UNIT SC ×2 (08:21→20:50)
[2023-02-26] MEDS: Na Biphos/Potassium Phosphate PACKET 1 PACKET PO ×4 (08:21→20:50)
[2023-02-26] MEDS: Senna/Docusate Sodium 1 Tablet 2 TABLET PO ×2 (08:22→20:48)
[2023-02-26] MEDS: Atenolol 25 MG Tablet PO (08:22)
[2023-02-26] MEDS: Glucerna Shake 120 ML LIQUID PO ×3 (08:23→17:00)
[2023-02-26 09:34] VITALS: O2SAT 92
[2023-02-26 11:24] LABS: Bedside Glucose 158 mg/dL (74-106)
[2023-02-26 13:41] VITALS: BMI 17.8
--- NOTE | 2023-02-26 14:16 | PN_ITS ---
Subjective Subjective Afebrile VSS-blood pressure is within goal. Heart rate is mildly elevated and in the 90s last evening and this morning. Maintaining appropriate oxygen saturation on RA - pulse ox is 92% today.......it had been in the high 90's Oral intake is good. Fluid intake is also picked up nearly 2000 cc yesterday. The blood sugar record was reviewed. The blood sugar at at bedtime was 149 and the fasting was 193 today. Lunchtime sugar was 158. No hypoglycemia. Discussed with nursing - no problems that need addressed Reviewed the PT/OT/ST notes Medication list reviewed. Delvin denies SOB, cough, CP, TAYLOR, N/V/abd pain, dysuria and calf pain. He tells me that he slept well last night and he is feeling good. He told me his mood is good but, when I asked him how he felt about being diagnosed with lung CA he got very quiet and tearful. When he came to the ER initially he was in acute renal failure with very uncontrolled sugars and he had not been taking care of himself. I wonder if he had the ischemic strokes and was not able to take care of himself and then he was outside and passed out and when he woke up he had a knot on his head where he hit it when he fell? This may have caused the bleed. Delvin sees a CLINICAL DIETITIAN who specializes in pain management by the name of Esther Rice who works for [facility] in [place]. I discussed with Delvin moving all his medical care to [place] since he will no longer be able to drive and he is in agreement. The will give him a list of PCP's and when we have a DC date will make appts for neurology, pulmonary and oncology. I called oncology here at the [facility] and gave them Delvin's info and they are going to request records from [facility]. When I have a DC date I will call and they will give us a time for an appt. Objective Data Objective Data Vital Signs: Vital Signs Temp Pulse Resp BP Pulse Ox O2 Del Method 98.8 F 98 16 131/80 H 92 Room Air 02/26/23 07:47 02/26/23 07:47 02/26/23 07:47 02/26/23 07:47 02/26/23 09:34 07/11/23 09:34 Oxygen Delivery Method Room Air Weight: 120 lb 2.431 oz Body Mass Index (BMI) 17.8 Intake & Output: Intake and Output for Last 24 Hours 02/24/23 02/25/23 02/26/23 23:59 23:59 23:59 Intake Total 1230 / 1230 1991 840 / 840 Output Total 475 / 475 1399 / 1999 1375 / 1375 Balance 755 / 755 592 / -8 -535 / -535 Medical Nutrition Assessment Dietitian: Malnutrition Criteria Met Start: 02/23/23 10:38 Freq: Status: Active Protocol: Document 02/23/23 10:38 SLA (Rec: 02/23/23 10:38 SLA [id number]) Nutrition Malnutrition Evidence of Malnutrition Exists Yes Malnutrition (severe): Acute Illness/Injury Evidenced By Suboptimal Energy Intake ( Severe),Weight Loss (Severe) Clinical Problem Acute Disease or Injury Related Malnutrition 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 Lab / Micro Data 02/27/23 05:15 02/27/23 05:15 Labs: Laboratory Results - last 24 hr 02/25/23 16:19: POC Glucose 271 H 02/25/23 20:07: POC Glucose 149 H 02/26/23 06:45: POC Glucose 193 H 02/26/23 11:03: POC Glucose 158 H Physical Exam Const alert and no apparent distress Constitutional Narrative: He was napping when I entered the room but, he aroused easily. General Appearance: cooperative Neck Neck Narrative: Brisk carotid upstroke with good pulse volume Resp normal respiratory effort, normal air movement and clear to auscultation bilaterally Resp Narrative: scattered wheezing, no conversational dyspnea. Effort and Inspection: Negative for tachypneic or labored Auscultation: diminished lung sounds Cardio regular rate, regular rhythm, no murmurs, no rub and no gallops GI normal to inspection, nondistended, normoactive bowel sounds, soft to palpation and non-tender GI Narrative: No guarding with palpation. No abdominal bruits. Extremity no calf tenderness General Extremity: Negative for edema Skin Rashes: no rashes Neuro Neuro Narrative: He has a mild L facial droop. Speech is not as crisp as it should be. No visual field cuts. See the NIHSS scoring. Coordination / Balance: [id number] test normal and [id number] test normal Psych cooperative Attitude: No agitated Mood & Affect: depressed Thought Content: No suicidality and No homicidality Assessment & Plan Assessment/Plan (1) Debility: (2) Hemorrhagic cerebrovascular accident (CVA): (3) Lung cancer: (4) Diabetes mellitus, type 2: QUALIFIERS: Diabetes mellitus terminal manager insulin use: without terminal manager use Diabetes mellitus complication status: with circulatory complication Diabetes mellitus complication detail: with other circulatory complications Qualified Code(s): E11.59 - Type 2 diabetes mellitus with other circulatory complications (5) Hypophosphatemia: (6) Normochromic normocytic anemia: (7) Severe protein-calorie malnutrition: (8) Depression: QUALIFIERS: Depression Type: major depressive disorder Major depression recurrence: unspecified whether recurrent Active/Remission status: currently active Major depression episode severity: severe Psychotic features: without psychotic features Qualified Code(s): F32.2 - Major depressive disor tatiana, single episode, severe without psychotic features (9) Anxiety: (10) Protein S deficiency: (11) Current use of terminal manager anticoagulation: (12) COPD (chronic obstructive pulmonary disease): QUALIFIERS: COPD type: unspecified COPD Qualified Code(s): J44.9 - Chronic obstructive pulmonary disease, unspecified (13) Current smoker: (14) Dyslipidemia: (15) Chronic pain syndrome: (16) Chronic neck pain: (17) Chronic back pain: QUALIFIERS: Back pain location: low back pain Back pain laterality: bilateral Sciatica presence: without sciatica Qualified Code(s): M 54.50 - Low back pain, unspecified; G89.29 - Other chronic pain (18) Migraine: QUALIFIERS: Migraine type: chronic without aura Status migrainosus presence: without status migrainosus Intractability: not intractable Qualified Code(s): G43.709 - Chronic migraine without aura, not intractable, without status migrainosus PLAN: Plan 1. Continue therapy 2. Check a 3 AM blood sugar tonight. 3. Continue the current insulin regimen Charges/Coding Visit Charges Inpatient E&M: 28479 Subs Hosp L2
[2023-02-26 16:55] LABS: Bedside Glucose 203 mg/dL (74-106)
[2023-02-26 19:53] VITALS: BP 117/63; PULSE 73; RESP 18; TEMP 36.9; O2SAT 95
[2023-02-26 20:30] VITALS: PULSE 73; RESP 18; O2SAT 95; BMI 17.8
[2023-02-26] MEDS: Mirtazapine 15 MG Tablet PO (20:48)
[2023-02-26] MEDS: Atorvastatin Calcium 40 MG Tablet PO (20:48)
[2023-02-26] MEDS: Insulin Glargine-YFGN 100 UNIT/ML Pen 15 UNIT SC (20:49)
[2023-02-26 22:52] LABS: Bedside Glucose 174 mg/dL (74-106)
[2023-02-27 04:14] LABS: Bedside Glucose 150 mg/dL (74-106)
[2023-02-27] MEDS: Ascorbic Acid 500 MG Tablet PO ×3 (05:14→20:21)
[2023-02-27] MEDS: Acetaminophen 500 MG Tablet 1000 MG PO ×2 (05:14→15:20)
[2023-02-27 05:25] LABS: Hematocrit 39.1 % (40-54); Hemoglobin 12.2 g/dL (13.0-16.5)
[2023-02-27 05:46] LABS: Anion Gap 3 (5-15); BUN 15 mg/dL (7-18); BUN/Creat Ratio 19.1 RATIO (10-20); Chloride 103 mmol/L (98-107); Creatinine, Serum 0.78 mg/dL (0.70-1.30); EST Glomerular Filtration Rate 105 mL/min (>60); Est Glom Filt Rate - Afr Amer 127 mL/min (>60); Estimated Creatinine Clearance 55.26 ml/min; Glucose 156 mg/dL (74-106); Potassium 4.4 mmol/L (3.5-5.1); Sodium Level 138 mmol/L (136-145)
[2023-02-27] MEDS: Magnesium Hydroxide 30 ML UDC PO (06:12)
[2023-02-27 07:27] LABS: Bedside Glucose 221 mg/dL (74-106)
[2023-02-27] MEDS: Aspirin 81 MG TAB.CHEW PO (07:43)
[2023-02-27] MEDS: Glucerna Shake 120 ML LIQUID PO ×3 (07:43→16:53)
[2023-02-27] MEDS: Insulin Lispro 100 UNIT/ML INSULN.PEN SC ×5 (07:45→16:51)
[2023-02-27 08:28] VITALS: BP 120/71; PULSE 77; RESP 15; TEMP 36.4; O2SAT 92
[2023-02-27] MEDS: Umeclidinium Bromide Inhaler 1 PUFF INHALATION (09:33)
[2023-02-27] MEDS: Amox/Clavulanate 875 MG Tablet PO ×2 (09:33→20:21)
[2023-02-27] MEDS: Heparin Injection (Vial) 5,000 UNIT/ML VIAL 5000 UNIT SC ×2 (09:33→20:21)
[2023-02-27] MEDS: Senna/Docusate Sodium 1 Tablet 2 TABLET PO ×2 (09:33→20:22)
[2023-02-27] MEDS: Atenolol 25 MG Tablet PO (09:33)
[2023-02-27] MEDS: Na Biphos/Potassium Phosphate PACKET 1 PACKET PO ×4 (09:34→20:22)
[2023-02-27] MEDS: Polyethylene Glycol 3350 17 GM PACKET PO ×2 (09:35→20:22)
[2023-02-27 11:30] LABS: Bedside Glucose 214 mg/dL (74-106)
--- NOTE | 2023-02-27 15:20 | CHAPLAIN ---
Type of Pastoral Visit _x__ Initial Visit ___ Follow-up Visit ___ On-call Visit ___ General Patient Visit ___ Spiritual Assessment ___ Family Conference ___ Bereavement ___ Rapid Response ___ Code Blue ___ Other (describe below) Pastoral Care Referral From _x__ Patient ___ Family ___ Nurse ___ Physician ___ Manager [employer] ___ Telephone Interviewer ___ Other (describe below) Sacrament/Intervention ___ Active listening ___ Anointing ___ Jehovah'S Witness ___ Bereavement ___ Communion ___ Carla exploration ___ ___ Life review ___ Prayer ___ Reconciliation ___ Sacrament of Sick ___ Supportive presence ___ Wedding ___ Other (describe below) Pastoral Comments patient is resting in bed and asked to be able to sleep because of being so tired from therapy; offer to return another day is accepted
[2023-02-27 16:46] LABS: Bedside Glucose 126 mg/dL (74-106)
[2023-02-27 17:00] VITALS: BMI 17.8
[2023-02-27 18:53] VITALS: BP 103/64; PULSE 70; RESP 16; TEMP 36.3; O2SAT 95
[2023-02-27] MEDS: Atorvastatin Calcium 40 MG Tablet PO (20:21)
[2023-02-27] MEDS: Mirtazapine 15 MG Tablet PO (20:22)
[2023-02-27 22:00] VITALS: PULSE 72; RESP 16; O2SAT 94
[2023-02-27 22:10] VITALS: BMI 17.8
[2023-02-27] MEDS: Insulin Glargine-YFGN 100 UNIT/ML Pen 15 UNIT SC (23:24)
[2023-02-28 00:47] LABS: Bedside Glucose 231 mg/dL (74-106)
[2023-02-28 03:19] LABS: Bedside Glucose 164 mg/dL (74-106)
[2023-02-28] MEDS: Ascorbic Acid 500 MG Tablet PO ×3 (05:48→20:27)
[2023-02-28 06:00] VITALS: BMI 17.9
[2023-02-28 07:22] LABS: Bedside Glucose 130 mg/dL (74-106)
[2023-02-28 07:58] VITALS: BP 101/73; PULSE 86; RESP 15; TEMP 36.2; O2SAT 91
[2023-02-28] MEDS: Insulin Lispro 100 UNIT/ML INSULN.PEN SC ×3 (09:03→12:14)
[2023-02-28] MEDS: Amox/Clavulanate 875 MG Tablet PO ×2 (09:04→20:29)
[2023-02-28] MEDS: Heparin Injection (Vial) 5,000 UNIT/ML VIAL 5000 UNIT SC ×2 (09:04→20:28)
[2023-02-28] MEDS: Umeclidinium Bromide Inhaler 1 PUFF INHALATION (09:04)
[2023-02-28] MEDS: Na Biphos/Potassium Phosphate PACKET 1 PACKET PO ×4 (09:04→20:28)
[2023-02-28] MEDS: Aspirin 81 MG TAB.CHEW PO (09:04)
[2023-02-28] MEDS: Glucerna Shake 120 ML LIQUID PO ×3 (09:04→16:05)
[2023-02-28] MEDS: Atenolol 25 MG Tablet PO (09:04)
[2023-02-28] MEDS: Polyethylene Glycol 3350 17 GM PACKET PO ×2 (09:05→20:28)
[2023-02-28] MEDS: Senna/Docusate Sodium 1 Tablet 2 TABLET PO ×2 (09:05→20:30)
[2023-02-28 11:32] LABS: Bedside Glucose 214 mg/dL (74-106)
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
--- NOTE | 2023-02-28 12:43 | CASEMGMT ---
Social Work IDT met with patient and niece for Team meeting. Discussed patient's progress in PT/OT/ST/SN. Educated to [facility] insurance with [employer] 02/28 and continued stay is not guaranteed with each review. IDT expressed concerns with pt DC home alone and suspecting pt was not thriving at home prior. SW offered resources for [facility] [employer] or SNF stay with Medicaid benefit. Niece note she works registered phlebotomist part time and both son's live out of state. Pt and niece agreeable to SNF stay if needed at [place]. SW offered SNF list INN with insurance and quality and resource data via [employer]. List printed for pt and niece. If pt returns to community, states he will not be able to drive. SW provided transportation resources. SW will continue to follow. Will ReTeam next week. LAVON KeithW
--- NOTE | 2023-02-28 13:11 | NURSING ---
Joann Mulligan with patient permission took home his bag of home meds that nursing had locked up.
[2023-02-28 16:29] LABS: Bedside Glucose 132 mg/dL (74-106)
[2023-02-28 17:00] VITALS: BMI 17.8
[2023-02-28] MEDS: Insulin Lispro 100 UNIT/ML INSULN.PEN 6 UNIT SC (17:48)
[2023-02-28 19:32] VITALS: BP 126/69; PULSE 76; RESP 16; TEMP 36.1; O2SAT 98
[2023-02-28] MEDS: Atorvastatin Calcium 40 MG Tablet PO (20:30)
[2023-02-28] MEDS: Mirtazapine 15 MG Tablet PO (21:15)
[2023-02-28 21:47] VITALS: O2SAT 98
[2023-02-28] MEDS: Insulin Glargine-YFGN 100 UNIT/ML Pen 20 UNIT SC (22:14)
[2023-02-28 22:27] LABS: Bedside Glucose 208 mg/dL (74-106)
[2023-03-01 01:04] VITALS: BMI 17.8
[2023-03-01 03:03] LABS: Bedside Glucose 233 mg/dL (74-106)
[2023-03-01] MEDS: Ascorbic Acid 500 MG Tablet PO ×3 (05:14→20:16)
[2023-03-01 06:52] LABS: Bedside Glucose 191 mg/dL (74-106)
[2023-03-01 08:02] VITALS: BP 140/83; PULSE 73; RESP 15; TEMP 36.6; O2SAT 95
[2023-03-01] MEDS: Insulin Lispro 100 UNIT/ML INSULN.PEN SC ×5 (09:16→19:09)
[2023-03-01] MEDS: Insulin Lispro 100 UNIT/ML INSULN.PEN 6 UNIT SC ×2 (09:16→16:52)
[2023-03-01] MEDS: Aspirin 81 MG TAB.CHEW PO (09:17)
[2023-03-01] MEDS: Atenolol 25 MG Tablet PO (09:17)
[2023-03-01] MEDS: Amox/Clavulanate 875 MG Tablet PO ×2 (09:17→20:14)
[2023-03-01] MEDS: Umeclidinium Bromide Inhaler 1 PUFF INHALATION (09:19)
[2023-03-01] MEDS: Senna/Docusate Sodium 1 Tablet 2 TABLET PO ×2 (09:19→20:16)
[2023-03-01] MEDS: Heparin Injection (Vial) 5,000 UNIT/ML VIAL 5000 UNIT SC ×2 (09:20→20:14)
[2023-03-01] MEDS: Glucerna Shake 120 ML LIQUID PO (09:21)
[2023-03-01] MEDS: Na Biphos/Potassium Phosphate PACKET 1 PACKET PO ×4 (09:22→20:15)
[2023-03-01] MEDS: Pantoprazole Sodium 40 MG Tablet PO (11:00)
[2023-03-01 11:37] LABS: Bedside Glucose 207 mg/dL (74-106)
--- NOTE | 2023-03-01 14:24 | CASEMGMT ---
Social Work Advanced directives completed with pt. Pt named sonRalf, as primary, and sonKeshav, as secondary. Original and copy provided to pt. Copy placed on chart. LAVON Keith
[2023-03-01 14:58] VITALS: BMI 17.8
[2023-03-01] MEDS: oxyCODONE 5 MG Tablet PO (16:01)
[2023-03-01 16:42] LABS: Bedside Glucose 190 mg/dL (74-106)
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
[2023-03-01 19:32] VITALS: BP 100/67; PULSE 72; RESP 14; TEMP 36.9; O2SAT 95
[2023-03-01] MEDS: Mirtazapine 15 MG Tablet PO (20:15)
[2023-03-01] MEDS: Atorvastatin Calcium 40 MG Tablet PO (20:15)
[2023-03-01] MEDS: Polyethylene Glycol 3350 17 GM PACKET PO (20:15)
[2023-03-01 21:15] VITALS: BMI 17.8
[2023-03-01 22:00] VITALS: O2SAT 95
[2023-03-01 22:03] LABS: Bedside Glucose 140 mg/dL (74-106)
[2023-03-01] MEDS: Insulin Glargine-YFGN 100 UNIT/ML Pen 20 UNIT SC (22:37)
[2023-03-02 02:30] LABS: Bedside Glucose 159 mg/dL (74-106)
[2023-03-02] MEDS: Ascorbic Acid 500 MG Tablet PO ×3 (05:27→21:59)
[2023-03-02 06:34] LABS: Bedside Glucose 152 mg/dL (74-106)
[2023-03-02] MEDS: Insulin Lispro 100 UNIT/ML INSULN.PEN SC ×4 (08:31→17:40)
[2023-03-02] MEDS: Aspirin 81 MG TAB.CHEW PO (08:34)
[2023-03-02] MEDS: Insulin Lispro 100 UNIT/ML INSULN.PEN 10 UNIT SC ×2 (08:34→17:40)
[2023-03-02] MEDS: Amox/Clavulanate 875 MG Tablet PO ×2 (08:35→21:59)
[2023-03-02] MEDS: Petrolatum 33% Tube 1 APPLIC TOPICAL ×2 (08:35→22:12)
[2023-03-02] MEDS: APIXABAN 5 MG TABLET PO ×2 (08:35→22:01)
[2023-03-02] MEDS: Atenolol 25 MG Tablet PO (08:37)
[2023-03-02] MEDS: Senna/Docusate Sodium 1 Tablet 2 TABLET PO ×2 (08:37→22:00)
[2023-03-02] MEDS: Pantoprazole Sodium 40 MG Tablet PO (08:37)
[2023-03-02] MEDS: Na Biphos/Potassium Phosphate PACKET 1 PACKET PO ×4 (08:40→22:00)
[2023-03-02] MEDS: Polyethylene Glycol 3350 17 GM PACKET PO ×2 (08:41→21:58)
[2023-03-02 08:50] VITALS: BP 120/74; PULSE 74; RESP 16; TEMP 36.4; O2SAT 95
[2023-03-02] MEDS: Umeclidinium Bromide Inhaler 1 PUFF INHALATION (10:18)
--- NOTE | 2023-03-02 10:31 | PCM.PROGNOTE ---
Subjective Subjective Afebrile VSS Maintaining appropriate oxygen saturation on RA Oral intake is good. Fluid intake is also good. The blood sugar record was reviewed. All blood sugars since yesterday at noon are under 200. He was 140 at at bedtime, 159 at 2 AM and 152 this morning. Discussed with nursing - no problems that need addressed Reviewed the PT/OT/ST notes Medication list reviewed. He had no complaints today when I asked him if he was having any problems. He did admit that he is feeling somewhat like he has lost control of his life. He also admitted that he has lost a lot of weight recently and none of his pants fit. He told me again quite adamantly that he will not take chemotherapy. I doubt resection is an option because his BS's are markedly diminished and I suspect he has severe emphysema. He is somewhat angry today and wants the oncologist to prove to him he has cancer. I discussed With him that I reviewed the bx report and he does have squamous cell lung CA. He tells me that he refuses to changes clothes because he does not have many clothes that fit him. HE is still not processing information well. Objective Data Objective Data Vital Signs: Vital Signs Temp Pulse Resp BP Pulse Ox O2 Del Method 97.5 F L 74 16 120/74 95 Room Air 03/02/23 08:50 03/02/23 08:50 03/02/23 08:50 03/02/23 08:50 03/02/23 08:50 03/02/23 08:50 Oxygen Delivery Method Room Air Weight: 121 lb 4.068 oz Body Mass Index (BMI) 17.8 Intake & Output: Intake and Output for Last 24 Hours 02/28/23 03/01/23 03/02/23 23:59 23:59 23:59 Intake Total 1310 / 1310 1240 / 1480 300 / 300 Output Total 950 / 1400 1500 / 1800 450 / 450 Balance 360 / -90 -260 / -320 -150 / -150 Medical Nutrition Assessment Dietitian: Malnutrition Criteria Met Start: 02/23/23 10:38 Freq: Status: Active Protocol: Document 02/23/23 10:38 ABDIEL (Rec: 02/23/23 10:38 [email or web address] [id number]) Nutrition Malnutrition Evidence of Malnutrition Exists Yes Malnutrition (severe): Acute Illness/Injury Evidenced By Suboptimal Energy Intake ( Severe),Weight Loss (Severe) Clinical Problem Acute Disease or Injury Related Malnutrition 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 Lab / Micro Data 02/27/23 05:15 02/27/23 05:15 Labs: Laboratory Results - last 24 hr 03/01/23 11:17: POC Glucose 207 H 03/01/23 16:06: POC Glucose 190 H 03/01/23 21:43: POC Glucose 140 H 03/02/23 02:12: POC Glucose 159 H 03/02/23 06:13: POC Glucose 152 H Physical Exam Const alert Constitutional Narrative: Seems angry today and he is in denial about the cancer. He wants out of here and wants to know when he can get out. He complains of being tired and tells me that the therapy isn't doing much for him because it makes him more tired. Resp Resp Narrative: very diminished BS's with no wheezing. He is not tachypneic and has no conversational dyspnea. He is making better eye contact with him today when we are speaking Auscultation: diminished lung sounds Cardio regular rate, regular rhythm and no gallops Cardio Narrative: vertical heart, likely due to hyperinflation from COPD. GI normal to inspection, nondistended, normoactive bowel sounds, soft to palpation and non-tender Extremity no calf tenderness General Extremity: Negative for edema Skin General Skin Exam: no breakdown Rashes: no rashes Psych Psych Narrative: depressed, angry but participating with therapy. Trying to get control by refusing to change clothes and refusing to shower with OT. 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 use: without usp use Diabetes mellitus complication status: with circulatory complication Diabetes mellitus complication detail: with other circulatory complications Qualified Code(s): E11.59 - Type 2 diabetes mellitus with other circulatory complications (5) Hypophosphatemia: (6) Normochromic normocytic anemia: (7) Severe protein-calorie malnutrition: (8) Depression: QUALIFIERS: Depression Type: major depressive disorder Major depression recurrence: unspecified whether recurrent Active/Remission status: currently active Major depression episode severity: severe Psychotic features: without psychotic features Qualified Code(s): F32.2 - Major depressive disorder, single episode, severe without psychotic features (9) Anxiety: (10) Protein S deficiency: (11) 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: (12) COPD (chronic obstructive pulmonary disease): QUALIFIERS: COPD type: unspecified COPD Qualified Code(s): J44.9 - Chronic obstructive pulmonary disease, unspecified (13) Current smoker: (14) Dyslipidemia: (15) Chronic pain syndrome: (16) Chronic neck pain: (17) Chronic back pain: QUALIFIERS: Back pain location: low back pain Back pain laterality: bilateral Sciatica presence: without sciatica Qualified Code(s): M54.50 - Low back pain, unspecified; G89.29 - Other chronic pain (18) Migraine: QUALIFIERS: Migraine type: chronic without aura Status migrainosus presence: without status migrainosus Intractability: not intractable Qualified Code(s): G43.709 - Chronic migraine without aura, not intractable, without status migrainosus PLAN: Plan 1. Continue therapy 2. Start Eliquis 5 mg p.o. twice daily today 3. Recheck lab next Saturday 4. No adverse effects with Remeron -consider increasing the dose in another week if no change in his affect. 5. He is tolerating the beta-ruth with no lightheadedness and no hypotension. Has not been complaining of headaches so we will continue the beta-ruth for suspected migraine cephalgia. 6. Will need a PCP in [place]. Will also need an appt with pulmonary medicine and with oncology. Charges/Coding Visit Charges Inpatient E&M: 52864 Subs Hosp L2
[2023-03-02] MEDS: BUPRENORPHINE 15 MCG/HR PATCH 1 EACH TD (10:35)
[2023-03-02 12:42] LABS: Bedside Glucose 225 mg/dL (74-106)
[2023-03-02 14:02] VITALS: BMI 17.8
[2023-03-02 16:59] LABS: Bedside Glucose 152 mg/dL (74-106)
[2023-03-02 19:42] VITALS: BP 126/66; PULSE 71; RESP 16; TEMP 37.1; O2SAT 96
[2023-03-02] MEDS: Atorvastatin Calcium 40 MG Tablet PO (22:00)
[2023-03-02] MEDS: Insulin Glargine-YFGN 100 UNIT/ML Pen 20 UNIT SC (22:01)
[2023-03-02] MEDS: Mirtazapine 15 MG Tablet PO (22:19)
[2023-03-02 22:30] LABS: Bedside Glucose 86 mg/dL (74-106)
[2023-03-03 02:08] LABS: Bedside Glucose 156 mg/dL (74-106)
[2023-03-03 06:54] VITALS: BMI 17.8
[2023-03-03] MEDS: Insulin Lispro 100 UNIT/ML INSULN.PEN SC (06:58)
[2023-03-03 07:19] LABS: Bedside Glucose 159 mg/dL (74-106)
[2023-03-03] MEDS: Polyethylene Glycol 3350 17 GM PACKET PO ×2 (08:59→22:13)
[2023-03-03] MEDS: Umeclidinium Bromide Inhaler 1 PUFF INHALATION (08:59)
[2023-03-03] MEDS: Na Biphos/Potassium Phosphate PACKET 1 PACKET PO ×4 (08:59→22:13)
[2023-03-03 09:00] VITALS: BP 124/79; PULSE 89; RESP 16; TEMP 36.5; O2SAT 93
[2023-03-03] MEDS: Aspirin 81 MG TAB.CHEW PO (09:00)
[2023-03-03] MEDS: Pantoprazole Sodium 40 MG Tablet PO (09:00)
[2023-03-03] MEDS: Amox/Clavulanate 875 MG Tablet PO ×2 (09:00→22:14)
[2023-03-03] MEDS: Atenolol 25 MG Tablet PO (09:00)
[2023-03-03] MEDS: APIXABAN 5 MG TABLET PO ×2 (09:01→22:14)
[2023-03-03] MEDS: Insulin Lispro 100 UNIT/ML INSULN.PEN 10 UNIT SC ×2 (09:02→16:43)
[2023-03-03] MEDS: oxyCODONE 5 MG Tablet PO (10:34)
[2023-03-03 12:00] VITALS: BMI 18.2
[2023-03-03 12:19] LABS: Bedside Glucose 67 mg/dL (74-106)
[2023-03-03 12:43] LABS: Bedside Glucose 70 mg/dL (74-106)
[2023-03-03] MEDS: Ascorbic Acid 500 MG Tablet PO ×2 (12:44→22:13)
[2023-03-03] MEDS: Petrolatum 33% Tube 1 APPLIC TOPICAL ×2 (12:55→22:14)
[2023-03-03 13:48] VITALS: BMI 18.2
[2023-03-03 17:00] LABS: Bedside Glucose 311 mg/dL (74-106)
[2023-03-03 19:34] VITALS: BP 110/67; PULSE 78; RESP 16; TEMP 37.1; O2SAT 95
[2023-03-03 19:36] LABS: Bedside Glucose 153 mg/dL (74-106)
[2023-03-03 22:00] VITALS: PULSE 78; O2SAT 95; BMI 18.2
[2023-03-03] MEDS: Atorvastatin Calcium 40 MG Tablet PO (22:13)
[2023-03-03] MEDS: Mirtazapine 15 MG Tablet PO (22:14)
[2023-03-03] MEDS: Insulin Glargine-YFGN 100 UNIT/ML Pen 20 UNIT SC (22:15)
[2023-03-03] MEDS: Senna/Docusate Sodium 1 Tablet 2 TABLET PO (22:16)
[2023-03-03 22:51] LABS: Bedside Glucose 173 mg/dL (74-106)
[2023-03-04 03:20] LABS: Bedside Glucose 169 mg/dL (74-106)
[2023-03-04] MEDS: Ascorbic Acid 500 MG Tablet PO ×3 (05:46→23:02)
[2023-03-04 06:16] VITALS: BMI 20.1
[2023-03-04 06:35] LABS: Bedside Glucose 168 mg/dL (74-106)
[2023-03-04 07:38] VITALS: BP 105/68; PULSE 90; RESP 18; TEMP 37; O2SAT 96
[2023-03-04] MEDS: Umeclidinium Bromide Inhaler 1 PUFF INHALATION (08:28)
[2023-03-04] MEDS: Aspirin 81 MG TAB.CHEW PO (08:29)
[2023-03-04] MEDS: Na Biphos/Potassium Phosphate PACKET 1 PACKET PO ×4 (08:29→23:02)
[2023-03-04] MEDS: Senna/Docusate Sodium 1 Tablet 2 TABLET PO ×2 (08:30→23:02)
[2023-03-04] MEDS: Pantoprazole Sodium 40 MG Tablet PO (08:30)
[2023-03-04] MEDS: Atenolol 25 MG Tablet PO (08:31)
[2023-03-04] MEDS: APIXABAN 5 MG TABLET PO ×2 (08:31→23:02)
[2023-03-04] MEDS: Amox/Clavulanate 875 MG Tablet PO ×2 (08:31→23:02)
[2023-03-04] MEDS: Insulin Lispro 100 UNIT/ML INSULN.PEN 10 UNIT SC ×2 (08:32→17:12)
[2023-03-04] MEDS: oxyCODONE 5 MG Tablet PO ×3 (08:39→23:03)
[2023-03-04] MEDS: Polyethylene Glycol 3350 17 GM PACKET PO ×2 (08:39→23:01)
[2023-03-04] MEDS: Petrolatum 33% Tube 1 APPLIC TOPICAL ×2 (08:42→23:04)
--- NOTE | 2023-03-04 11:05 | PN_ITS ---
Subjective Subjective Afebrile VSS Maintaining appropriate oxygen saturation on RA Oral intake is good. Blood sugar record was reviewed. Yesterday he did not eat a good breakfast and his blood sugar at lunchtime was 78. All lispro was held and the blood sugar at supper was 311. The blood sugar was 173 at at bedtime and 168 this morning. Discussed with nursing - Has been refusing to wear the SCD's. He is now on Eliquis now (since Saturday) so we can DC the SCD's Reviewed the PT/OT/ST notes Medication list reviewed. Taking oxycodone usually once a day. Has never used the albuterol inhaler since admission. Delvin is c/o increased heartburn and hiccups. He is already on pantoprazole. He has SOB with exertion. He took a shower with nursing on Saturday and has been mostly cooperative. He has not c/o a TAYLOR or back pain. Eating 75-100% of most of his meals. He denies SOB at rest, lightheadedness, CP, palpitations, dysuria and calf pain. Objective Data Objective Data Vital Signs: Vital Signs Temp Pulse Resp BP Pulse Ox O2 Del Method 98.6 F 90 18 105/68 96 Room Air 03/04/23 07:38 03/04/23 07:38 03/04/23 07:38 03/04/23 07:38 03/04/23 07:38 03/04/23 07:38 Oxygen Delivery Method Room Air Weight: 135 lb 12.876 oz Body Mass Index (BMI) 20.1 Intake & Output: Intake and Output for Last 24 Hours 03/02/23 03/03/23 03/04/23 23:59 23:59 23:59 Intake Total 900 / 900 2000 / 2000 390 / 390 Output Total 750 / 750 1400 / 1400 500 / 500 Balance 150 / 150 600 / 600 -110 / -110 Medical Nutrition Assessment Dietitian: Malnutrition Criteria Met Start: 02/23/23 10:38 Freq: Status: Active Protocol: Document 02/23/23 10:38 ABDIEL (Rec: 02/23/23 10:38 ABDIEL [id number]) Nutrition Malnutrition Evidence of Malnutrition Exists Yes Malnutrition (severe): Acute Illness/Injury Evidenced By Suboptimal Energy Intake ( Severe),Weight Loss (Severe) Clinical Problem Acute Disease or Injury Related Malnutrition 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 Lab / Micro Data 03/04/23 11:45 03/04/23 11:45 Labs: Laboratory Results - last 24 hr 03/03/23 11:58: POC Glucose 67 L 03/03/23 12:19: POC Glucose 70 L 03/03/23 16:42: POC Glucose 311 H 03/03/23 19:00: POC Glucose 153 H 03/03/23 22:12: POC Glucose 173 H 03/04/23 03:02: POC Glucose 169 H 03/04/23 06:14: POC Glucose 168 H Physical Exam Const alert and no apparent distress Constitutional Narrative: Sleeps a lot during the day......almost every time I enter his room he is sleeping. He is irritable. General Appearance: cooperative Resp Resp Narrative: No wheezing, rhonchi or rails. He is not tachypneic at rest. He has no orthopnea. Very poor air exchange with markedly diminished breath sounds throughout. Auscultation: diminished lung sounds Cardio regular rate, regular rhythm and no gallops Cardio Narrative: distant heart sounds. No ectopy Rate: Negative for bradycardia or tachycardic GI normal to inspection, nondistended, normoactive bowel sounds, soft to palpation and non-tender Extremity no calf tenderness General Extremity: Negative for edema Skin General Skin Exam: no breakdown Rashes: no rashes Neuro Neuro Narrative: He is depressed and irritable but, he is cooperating with therapy. Assessment & Plan Assessment/Plan (1) Debility: (2) Hemorrhagic cerebrovascular accident (CVA): (3) Lung cancer: QUALIFIERS: Laterality: right Lung location: unspecified part of lung Qualified Code(s): C34.91 - Malignant neoplasm of unspecified part of right bronchus or lung (4) Diabetes mellitus, type 2: QUALIFIERS: Diabetes mellitus terminal operator insulin use: without terminal operator use Diabetes mellitus complication status: with circulatory complication Diabetes mellitus complication detail: with other circulatory complications Qualified Code(s): E11.59 - Type 2 diabetes mellitus with other circulatory complications (5) Hypophosphatemia: (6) Normochromic normocytic anemia: (7) Severe protein-calorie malnutrition: (8) Depression: QUALIFIERS: Depression Type: major depressive disorder Major depression recurrence: unspecified whether recurrent Active/Remission status: currently active Major depression episode severity: severe Psychotic features: without psychotic features Qualified Code(s): F32.2 - Major depressive disorder, single episode, severe without psychotic features (9) Anxiety: (10) Protein S deficiency: (11) Current use of fci anticoagulation: (12) COPD (chronic obstructive pulmonary disease): QUALIFIERS: COPD type: unspecified COPD Qualified Code(s): J44.9 - Chronic obstructive pulmonary disease, unspecified (13) Current smoker: (14) Dyslipidemia: (15) Chronic pain syndrome: (16) Chronic neck pain: (17) Chronic back pain: QUALIFIERS: Back pain location: low back pain Back pain lateralit y: bilateral Sciatica presence: without sciatica Qualified Code(s): M54.50 - Low back pain, unspecified; G89.29 - Other chronic pain (18) Migraine: QUALIFIERS: Migraine type: chronic without aura Status migrainosus presence: without status migrainosus Intractability: not intractable Qualified Code(s): G43.709 - Chronic migraine without aura, not intractable, without status migrainosus (19) [place]ult[place]: PLAN: Plan 1. Continue therapy 2. PA and lateral chest x-ray today 3. CBC with differential and BMP today 4. GERD could be due to Victoza so will hold this medication and see if the sx improve. Charges/Coding Visit Charges Inpatient E&M: 27397 Subs Hosp L2
--- NOTE | 2023-03-04 11:30 | RAD_ITS ---
ACR Level 3 findings have been noted. An addendum which confirms receipt of the report will follow. INDICATION: SOB EXAMINATION/TECHNIQUE: X-RAY - XR Chest 2 Views COMPARISON: FINDINGS: LINES/DEVICES: A left-sided medical billing service projects over the left chest.. LUNGS: There is a 5 cm right hilar mass.. MEDIASTINUM AND CARDIOVASCULAR STRUCTURES: Cardiac silhouette not enlarged. Central airways and mediastinal contour are unremarkable. BONES AND SOFT TISSUES: Unremarkable. RAD/Chest PA and Lateral IMPRESSION: Right hilar mass. CT chest recommended for further characterization. Electronically Signed: Brice Fischer, at 11:44 EDT ,
[2023-03-04 11:54] LABS: Absolute Lymphocyte Count 1.68 X10^3/uL (0.83-4.51); Absolute Neutrophil Count 4.2 X10^3/uL (2.0-7.7); Eosinophil# 0.03 X10^3/uL; Eosinophils% 0.5 % (0-5); Hematocrit 37.5 % (40-54); Hemoglobin 11.4 g/dL (13.0-16.5); Lymphocyte # 1.68 X10^3/ul (0.83-4.51); Lymphocyte % 26.3 % (19-41); Mean Corp Hgb Conc 30.4 g/dL (32-36); Mean Corpuscular Hgb 26.8 pg (27.0-32.0); Mean Platelet Vol. 10.6 fl (6.2-12.0); Monocyte% 7.8 % (0-10); NRBC Flagged by Analyzer 0 % (0-5); Neutrophil # 4.15 X10^3/uL (2.7-7.7); Neutrophil % 65.1 % (47-70); Platelet Count 213 K/mm3 (150-450); RBC Distribution Width SD 51.5 fl (35.1-43.9); Red Blood Count 4.26 M/mm3 (4.6-6.2); White Blood Count 6.4 K/mm3 (4.4-11.0)
[2023-03-04 12:00] LABS: Bedside Glucose 149 mg/dL (74-106)
[2023-03-04] MEDS: Insulin Lispro 100 UNIT/ML INSULN.PEN SC (12:11)
[2023-03-04 12:42] LABS: Anion Gap 7 (5-15); BUN 17 mg/dL (7-18); BUN/Creat Ratio 20.7 RATIO (10-20); Chloride 99 mmol/L (98-107); Creatinine, Serum 0.82 mg/dL (0.70-1.30); EST Glomerular Filtration Rate 99 mL/min (>60); Est Glom Filt Rate - Afr Amer 120 mL/min (>60); Estimated Creatinine Clearance 76.17 ml/min; Glucose 163 mg/dL (74-106); Potassium 4.2 mmol/L (3.5-5.1); Sodium Level 134 mmol/L (136-145)
--- NOTE | 2023-03-04 13:47 | CASEMGMT ---
Social Work Received call from niece, stating she has spoken to pt's sons and requesting referral to [facility]. Family prefers pt DCs to a facility that has jail and AL, as pt may not be able to live at home alone. BOBBY educated to [facility] and [facility] in [facility] as options for [place]. family prefers pt remain in [place]. BOBBY also updated niece insurance approved with [employer] 03/07. BOBBY sent referral to [facility] via [employer]. LAVON KeithW
--- NOTE | 2023-03-04 14:06 | NURSING ---
Patient unable to complete entire OT session and refused x several attempts to finish session. At times, patient needs max cues to do tasks that staff requests.
--- NOTE | 2023-03-04 16:23 | CASEMGMT ---
Social Work SW and discussed palliative services for pt at [place]. requested consult. Order entered and sent secure email to [facility]. Odalys Leahy MSW [employer]TEMPOR[employer] CURATOR
[2023-03-04 16:24] VITALS: BMI 20.1
[2023-03-04 16:48] LABS: Bedside Glucose 163 mg/dL (74-106)
[2023-03-04 22:30] VITALS: BP 99/65; PULSE 88; RESP 16; TEMP 37.2; O2SAT 96; BMI 20.1
[2023-03-04] MEDS: Atorvastatin Calcium 40 MG Tablet PO (23:02)
[2023-03-04] MEDS: Mirtazapine 15 MG Tablet PO (23:02)
[2023-03-04] MEDS: Insulin Glargine-YFGN 100 UNIT/ML Pen 20 UNIT SC (23:03)
[2023-03-04 23:16] LABS: Bedside Glucose 204 mg/dL (74-106)
[2023-03-05 03:57] LABS: Bedside Glucose 189 mg/dL (74-106)
[2023-03-05 06:00] VITALS: BMI 19.1
[2023-03-05] MEDS: Ascorbic Acid 500 MG Tablet PO ×3 (07:03→19:45)
[2023-03-05 07:24] LABS: Bedside Glucose 148 mg/dL (74-106)
[2023-03-05 07:56] VITALS: BP 113/71; PULSE 76; RESP 15; TEMP 37.1; O2SAT 94
[2023-03-05] MEDS: Insulin Lispro 100 UNIT/ML INSULN.PEN 10 UNIT SC ×2 (09:09→18:10)
[2023-03-05] MEDS: Aspirin 81 MG TAB.CHEW PO (09:09)
[2023-03-05] MEDS: APIXABAN 5 MG TABLET PO ×2 (09:09→19:44)
[2023-03-05] MEDS: Amox/Clavulanate 875 MG Tablet PO ×2 (09:09→19:43)
[2023-03-05] MEDS: Senna/Docusate Sodium 1 Tablet 2 TABLET PO ×2 (09:10→19:44)
[2023-03-05] MEDS: Umeclidinium Bromide Inhaler 1 PUFF INHALATION (09:10)
[2023-03-05] MEDS: Polyethylene Glycol 3350 17 GM PACKET PO ×2 (09:10→19:44)
[2023-03-05] MEDS: Na Biphos/Potassium Phosphate PACKET 1 PACKET PO ×4 (09:10→19:44)
[2023-03-05] MEDS: Pantoprazole Sodium 40 MG Tablet PO (09:10)
[2023-03-05] MEDS: Atenolol 25 MG Tablet PO (09:10)
[2023-03-05] MEDS: Petrolatum 33% Tube 1 APPLIC TOPICAL ×2 (09:13→19:48)
[2023-03-05] MEDS: oxyCODONE 5 MG Tablet PO (09:35)
[2023-03-05 10:00] VITALS: RESP 14; O2SAT 95
[2023-03-05 11:28] LABS: Bedside Glucose 74 mg/dL (74-106)
--- NOTE | 2023-03-05 11:34 | CASEMGMT ---
Social Work [facility] can accept pt. Palliative scheduled meeting with pt and niece on 03/07 at 1130 am. BOBBY and collaborated on upcoming Team meeting BOBBY phoned niece to update on [facility] acceptance. Pt's insurance update is 03/07, if he gets a DC date, pt will DC to [facility]. The Team meeting will be rescheduled to Sunday 03/11, if pt is approved in [place]. Niece is agreeable. BOBBY will continue to follow. LAVON Keith
--- NOTE | 2023-03-05 11:52 | PCM.PROGNOTE ---
Subjective Subjective Afebrile VSS Maintaining appropriate oxygen saturation on RA Oral intake is decreasing. He only had 25-49% of his breakfast this AM. Has had some lower blood sugars the past few days. Intake is very erratic.......raman when the insulin is held for a borderline low sugar. Discussed with nursing - He is withdrawn and not wanting to do therapy today......nursing talked him into it. He sleeps a lot during the day and is sleeping well at night. Not very talkative. Reviewed the PT/OT/ST notes Medication list reviewed. Still having occasional TAYLOR with photophobia.....but the frequency had diminished considerably. He is mad because he is not getting the food he orders because he is on a carb controlled diet. I agreed to change it to a regular diet and will adjust insulin as needed.....will likely need to restart the SSI. I would rather have him on a regular diet and eating and use SSI than have him refuse to eat a diabetic diet. He denies shortness of breath, chest pain, lightheadedness, nausea/vomiting/abdominal pain, dysuria and calf pain. He is in bed every time I enter his room. He has been uncommunicative with nursing and he seems angry. Objective Data Objective Data Vital Signs: Vital Signs Temp Pulse Resp BP Pulse Ox O2 Del Method 98.7 F 76 15 113/71 94 Room Air 03/05/23 07:56 03/05/23 07:56 03/05/23 07:56 03/05/23 07:56 03/05/23 07:56 03/05/23 07:56 Oxygen Delivery Method Room Air Weight: 129 lb 6.581 oz Body Mass Index (BMI) 19.1 Intake & Output: Intake and Output for Last 24 Hours 03/03/23 03/04/23 03/05/23 23:59 23:59 23:59 Intake Total 1999 / 1999 1450 / 1450 180 / 180 Output Total 1400 / 1400 500 / 500 800 / 800 Balance 600 / 600 950 / 950 -620 / -620 Medical Nutrition Assessment Dietitian: Malnutrition Criteria Met Start: 02/23/23 10:38 Freq: Status: Active Protocol: Document 03/04/23 14:32 ABDIEL (Rec: 03/04/23 14:33 ABDIEL [id number]) Nutrition Malnutrition Evidence of Malnutrition Exists Yes Malnutrition (moderate): Acute Illness/Injury Evidenced By Weight Loss (Severe),Physical Changes (Moderate) Clinical Problem Acute Disease or Injury Related Malnutrition 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 and 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 to consume adequate energy intake Signs/Symptoms as evidenced by generalized mod fat/muscle loss and 20% unintended wt loss 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 Please weigh pt only on standing scale for better accuracy. Lab / Micro Data 03/04/23 11:45 03/04/23 11:45 Labs: Laboratory Results - last 24 hr 03/04/23 11:41: POC Glucose 149 H 03/04/23 11:45: WBC 6.4, RBC 4.26 L, Hgb 11.4 L, Hct 37.5 L, MCV 88.0, MCH 26.8 L, MCHC 30.4 L, RDW Std Deviation 51.5 H, RDW Coeff of Rober 16.0 H, Plt Count 213, MPV 10.6, Immature Gran % (Auto) 0.300, Neut % (Auto) 65.1, Lymph % (Auto) 26.3, [place] % (Auto) 7.8, Eos % (Auto) 0.5, Baso % (Auto) 0.0, Absolute Neuts (auto) 4.2, Absolute Lymphs (auto) 1.68, Nucleated RBC % 0, Sodium 134 L, Potassium 4.2, Chloride 99, Carbon Dioxide 28.0, Anion Gap 7, BUN 17, Creatinine 0.82, Estim Creat Clear Calc 76.17, Est GFR (MDRD) Af Amer 120, Est GFR (MDRD) Non-Af 99, BUN/Creatinine Ratio 20.7 H, Glucose 163 H, Calcium 9.0 03/04/23 16:30: POC Glucose 163 H 03/04/23 22:56: POC Glucose 204 H 03/05/23 03:38: POC Glucose 189 H 03/05/23 06:34: POC Glucose 148 H 03/05/23 11:10: POC Glucose 74 Radiography Diagnostic Testing: Radiology Impression Chest X-Ray 03/04/23 11:30 IMPRESSION: Right hilar mass. CT chest recommended for further characterization. Electronically Signed: Brice Fischer, at 11:44 EDT Reading Location ID and State: [facility] / [place] Tel , Service support , ADDENDUM: 03/04/23 1225 IMPRESSION: Right hilar mass. CT chest recommended for further characterization. N.B. : Jennifer Barker RN, confirmed on 03/04/2023 12:18:53 (ET) that the healthcare facility has received the radiology report. Electronically Signed: Brice Fischer, at 11:44 EDT Reading Location ID and State: [facility] / [place] Tel , Service support , Physical Exam Const alert Constitutional Narrative: Seems angry today and he is in denial about the cancer. He wants out of here and wants to know when he can get out. He complains of being tired and tells me that the therapy isn't doing much for him because it makes him more tired. General Appearance: cooperative HEENT normocephalic, head/scalp atraumatic and moist oral mucous membranes Eyes PERRL and EOMs intact bilaterally Neck no lymphadenopathy, No nodes and no carotid bruits Resp normal respiratory effort and clear to auscultation bilaterally Resp Narrative: very diminished BS's with no wheezing. He is not tachypneic and has no conversational dyspnea. Effort and Inspection: Negative for tachypneic or labored Auscultation: diminished lung sounds Cardio regular rate, regular rhythm, no murmurs and no gallops GI normal to inspection, nondistended, normoactive bowel sounds, soft to palpation and non-tender GI Narrative: No guarding with palpation Extremity no calf tenderness General Extremity: Negative for edema Skin General Skin Exam: no breakdown Rashes: no rashes Neuro Neuro Narrative: He has a mild L facial droop. Speech is not as crisp as it should be. No visual field cuts. See the NIHSS scoring. Coordination / Balance: [id number] test normal and [id number] test normal Psych cooperative Psych Narrative: depressed, angry but participating with therapy. Trying to get control by refusing to change clothes and refusing to shower with OT. 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 service representative teller insulin use: without group home use Diabetes mellitus complication status: with circulatory complication Diabetes mellitus complication detail: with other circulatory complications Qualified Code(s): E11.59 - Type 2 diabetes mellitus with other circulatory complications (5) Hypophosphatemia: (6) Normochromic normocytic anemia: (7) Severe protein-calorie malnutrition: (8) Depression: QUALIFIERS: Depression Type: major depressive disorder Major depression recurrence: unspecified whether recurrent Active/Remission status: currently active Major depression episode severity: severe Psychotic features: without psychotic features Qualified Code(s): F32.2 - Major depressive disorder, single episode, severe without psychotic features (9) Anxiety: (10) Protein S deficiency: (11) Current use of customer service representative teller anticoagulation: (12) COPD (chronic obstructive pulmonary disease): QUALIFIERS: COPD type: unspecified COPD Qualified Code(s): J44.9 - Chronic obstructive pulmonary disease, unspecified (13) Current smoker: (14) Dyslipidemia: (15) Chronic pain syndrome: (16) Chronic neck pain: (17) Chronic back pain: QUALIFIERS: Back pain location: low back pain Back pain laterality: bilateral Sciatica presence: without sciatica Qualified Code(s): M54.50 - Low back pain, unspecified; G89.29 - Other chronic pain (18) Migraine: QUALIFIERS: Migraine type: chronic without aura Status migrainosus presence: without status migrainosus Intractability: not intractable Qualified Code(s): G43.709 - Chronic migraine without aura, not intractable, without status migrainosus PLAN: Plan 1. Continue therapy 2. Increase Remeron to 30 mg p.o. at 9 PM nightly 3. He can not go home by himself and he has been accepted at [facility] when he is discharged from acute rehab. I suspect he is going to need LT placement. 4. The tumor in the R hilum is very large and he is not a candidate for surgery which leaves chemo and radiation. He is already malnourished and both chem and radiation are generally associated with Nausea and decreased appetite. Since he will be in a NH I do not know if he will even be considered functional enough to have tx for his cancer. He complains that the therapy makes him tired but, he is doing therapy. He does not seem to be able to make the connection that therapy is making him tired because he is malnourished and deconditioned but, it will get him stronger so he will be able to get tx for CA. Will get a palliative care consult. 5. There are no infiltrates or pleural effusions on the chest x-ray done yesterday but he does have a large gastric bubble and this may be causing the hiccups. 6. Add Pamelor to his current drug regimen to see if we can further decrease the number of migraine headaches. Charges/Coding Visit Charges Inpatient E&M: 47527 Subs Hosp L2
[2023-03-05 16:16] VITALS: BMI 19.1
[2023-03-05 16:30] LABS: Bedside Glucose 230 mg/dL (74-106)
[2023-03-05 19:20] VITALS: BP 115/67; PULSE 80; RESP 18; TEMP 36.7; O2SAT 93
[2023-03-05] MEDS: Atorvastatin Calcium 40 MG Tablet PO (19:43)
[2023-03-05] MEDS: Mirtazapine 30 MG Tablet PO (19:43)
[2023-03-05] MEDS: Nortriptyline 10 MG Capsule PO (19:44)
[2023-03-05 20:51] VITALS: O2SAT 95
[2023-03-05] MEDS: Insulin Glargine-YFGN 100 UNIT/ML Pen 20 UNIT SC (21:30)
[2023-03-05 21:50] LABS: Bedside Glucose 193 mg/dL (74-106)
[2023-03-06 01:03] VITALS: BMI 19.1
[2023-03-06 04:37] LABS: Bedside Glucose 104 mg/dL (74-106)
[2023-03-06] MEDS: Ascorbic Acid 500 MG Tablet PO ×3 (05:23→20:54)
[2023-03-06 05:43] VITALS: BMI 19.2
[2023-03-06 06:30] LABS: Bedside Glucose 107 mg/dL (74-106)
[2023-03-06 08:08] VITALS: BP 108/70; PULSE 84; RESP 14; TEMP 36.8; O2SAT 94
[2023-03-06] MEDS: Polyethylene Glycol 3350 17 GM PACKET PO ×2 (08:57→20:54)
[2023-03-06] MEDS: Aspirin 81 MG TAB.CHEW PO (08:57)
[2023-03-06] MEDS: Atenolol 25 MG Tablet PO (08:57)
[2023-03-06] MEDS: Amox/Clavulanate 875 MG Tablet PO ×2 (08:57→20:53)
[2023-03-06] MEDS: Na Biphos/Potassium Phosphate PACKET 1 PACKET PO ×4 (08:57→20:54)
[2023-03-06] MEDS: Pantoprazole Sodium 40 MG Tablet PO (08:57)
[2023-03-06] MEDS: APIXABAN 5 MG TABLET PO ×2 (08:57→20:53)
[2023-03-06] MEDS: Senna/Docusate Sodium 1 Tablet 2 TABLET PO ×2 (08:57→20:54)
[2023-03-06] MEDS: Umeclidinium Bromide Inhaler 1 PUFF INHALATION (08:58)
[2023-03-06] MEDS: Insulin Lispro 100 UNIT/ML INSULN.PEN 6 UNIT SC (09:04)
[2023-03-06] MEDS: Petrolatum 33% Tube 1 APPLIC TOPICAL ×2 (09:07→20:59)
[2023-03-06 11:32] LABS: Bedside Glucose 83 mg/dL (74-106)
--- NOTE | 2023-03-06 12:03 | CHAPLAIN ---
Type of Pastoral Visit _x__ Initial Visit ___ Follow-up Visit ___ On-call Visit ___ General Patient Visit ___ Spiritual Assessment ___ Family Conference ___ Bereavement ___ Rapid Response ___ Code Blue ___ Other (describe below) Pastoral Care Referral From _x__ Patient ___ Family ___ Nurse ___ Physician ___ Core Extruder ___ Balance Wheel Screw Hole Tapper ___ Other (describe below) Sacrament/Intervention _x__ Active listening ___ Anointing ___ Adventism ___ Bereavement ___ Communion ___ Carla exploration ___ _x__ Life review _x__ Prayer ___ Reconciliation ___ Sacrament of Sick _x__ Supportive presence ___ Wedding ___ Other (describe below) Pastoral Comments patient is awakened easily today on this fourth attempt to make a visit with him; it is earlier in the day and that made the difference apparently; pt is offered support, time to talk about his life and how he is handling his situation; pt talks about his love of music and that he misses his music room and time playing instruments at home; pt speaks of no regrets but just going through life doing what needed to be done including returning home to care for elderly father; pt is asked about what might help him and he answers just give me a good old fashioned prayer please; presence and prayer given
[2023-03-06 14:25] VITALS: BMI 19.2
[2023-03-06 16:20] LABS: Bedside Glucose 203 mg/dL (74-106)
[2023-03-06] MEDS: Insulin Lispro 100 UNIT/ML INSULN.PEN 10 UNIT SC (17:12)
[2023-03-06 19:29] VITALS: BP 106/65; PULSE 84; RESP 18; TEMP 36.8; O2SAT 93
[2023-03-06] MEDS: Atorvastatin Calcium 40 MG Tablet PO (20:53)
[2023-03-06] MEDS: Mirtazapine 30 MG Tablet PO (20:53)
[2023-03-06] MEDS: Nortriptyline 10 MG Capsule PO (20:54)
[2023-03-06 21:26] LABS: Bedside Glucose 104 mg/dL (74-106)
[2023-03-07] MEDS: Ascorbic Acid 500 MG Tablet PO ×3 (05:31→20:01)
[2023-03-07 06:00] VITALS: BMI 19.8
[2023-03-07 06:24] LABS: Bedside Glucose 152 mg/dL (74-106)
[2023-03-07 07:33] VITALS: BP 109/72; PULSE 84; RESP 16; TEMP 36.7; O2SAT 93
[2023-03-07] MEDS: APIXABAN 5 MG TABLET PO ×2 (08:29→19:59)
[2023-03-07] MEDS: Amox/Clavulanate 875 MG Tablet PO (08:30)
[2023-03-07] MEDS: Atenolol 25 MG Tablet PO (08:30)
[2023-03-07] MEDS: Na Biphos/Potassium Phosphate PACKET 1 PACKET PO ×4 (08:30→20:00)
[2023-03-07] MEDS: Aspirin 81 MG TAB.CHEW PO (08:30)
[2023-03-07] MEDS: Pantoprazole Sodium 40 MG Tablet PO (08:30)
[2023-03-07] MEDS: Insulin Lispro 100 UNIT/ML INSULN.PEN 6 UNIT SC (08:31)
[2023-03-07] MEDS: Umeclidinium Bromide Inhaler 1 PUFF INHALATION (08:32)
[2023-03-07] MEDS: oxyCODONE 5 MG Tablet PO (11:02)
[2023-03-07] MEDS: Petrolatum 33% Tube 1 APPLIC TOPICAL ×2 (11:04→20:04)
[2023-03-07 11:51] LABS: Bedside Glucose 154 mg/dL (74-106)
--- NOTE | 2023-03-07 11:52 | PCM.PROGNOTE ---
Subjective Subjective Afebrile VSS Maintaining appropriate oxygen saturation on RA Oral intake is poor despite changing the diet to a regular diet. Discussed with nursing - Lantus was held last night. the BS was normal when it was held......at 105. FBS today is 152. He is 154 at lunch. He refused insulin at lunch yesterday and today. He has been taking the insulin at breakfast and supper. Reviewed the PT/OT/ST notes Medication list reviewed. He was sleeping when I entered the room. He sleeps most of the day when he is not doing therapy. He denies SOB, CP, fevers, sweats, shaking chills, Nausea, abdominal pain. Still with hiccups......occasionally. Denies heartburn at this time. Objective Data Objective Data Vital Signs: Vital Signs Temp Pulse Resp BP Pulse Ox O2 Del Method 98.0 F 84 16 109/72 93 Room Air 03/07/23 07:33 03/07/23 07:33 03/07/23 07:33 03/07/23 07:33 03/07/23 07:33 03/07/23 07:33 Oxygen Delivery Method Room Air Weight: 134 lb 4.184 oz Body Mass Index (BMI) 19.8 Intake & Output: Intake and Output for Last 24 Hours 03/05/23 03/06/23 03/07/23 23:59 23:59 23:59 Intake Total 920 / 920 900 / 900 300 / 300 Output Total 1200 / 1200 900 / 1400 900 / 900 Balance -280 / -280 0 / -500 -600 / -600 Medical Nutrition Assessment Dietitian: Malnutrition Criteria Met Start: 02/23/23 10:38 Freq: Status: Active Protocol: Document 03/04/23 14:32 ABDIEL (Rec: 03/04/23 14:33 [facility] [id number]) Nutrition Malnutrition Evidence of Malnutrition Exists Yes Malnutrition (moderate): Acute Illness/Injury Evidenced By Weight Loss (Severe),Physical Changes (Moderate) Clinical Problem Acute Disease or Injury Related Malnutrition 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 and inability to consume adequate energy intake Signs/Symptoms as evidenced by generalized mod fat/muscle loss and 20% unintended wt loss x 2.5 months waitstaff captain Status Active Problem Biting/Chewing Difficulty Status Inactive Problem Altered Nutrient-Related Laboratory Values Etiology related to diabetes and pt not on cho controlled diet at home Signs/Symptoms as evidenced by a1c = 7.5 Status Active Problem Recommendation Dietitian Recommendations/Changes Will continue CHO Control/ Cardiac diet d/t elevated a1c Will discontinue 120 ml glucerna shake tid w/ medpass d/t pt refusal x past 4 days Available for diet education if desired by pt. Please weigh pt only on standing scale for better accuracy. Lab / Micro Data 03/04/23 11:45 03/04/23 11:45 Labs: Laboratory Results - last 24 hr 03/06/23 16:02: POC Glucose 203 H 03/06/23 20:58: POC Glucose 104 03/07/23 06:04: POC Glucose 152 H 03/07/23 11:32: POC Glucose 154 H Physical Exam Const Constitutional Narrative: Irritable. Upset because he will not be going home at [place]. Angry that he has cancer. General Appearance: cooperative Resp clear to auscultation bilaterally Resp Narrative: Markedly diminished breath sounds throughout with no wheezing and no crackles. He is not tachypneic and respirations are nonlabored. He does not have shortness of breath lying down. Rare nonproductive cough. Cardio regular rate, regular rhythm and no gallops GI normal to inspection, nondistended, normoactive bowel sounds, soft to palpation and non-tender GI Narrative: No guarding with palpation Extremity no calf tenderness General Extremity: Negative for edema Skin General Skin Exam: no breakdown Rashes: no rashes Assessment & Plan Assessment/Plan (1) Debility: (2) Hemorrhagic cerebrovascular accident (CVA): (3) Lung cancer: QUALIFIERS: Laterality: right Lung location: unspecified part of lung Qualified Code(s): C34.91 - Malignant neoplasm of unspecified part of right bronchus or lung (4) Diabetes mellitus, type 2: QUALIFIERS: Diabetes mellitus usp insulin use: without petroleum terminal plant operator use Diabetes mellitus complication status: with circulatory complication Diabetes mellitus complication detail: with other circulatory complications Qualified Code(s): E11.59 - Type 2 diabetes mellitus with other circulatory complications (5) Hypophosphatemia: (6) Normochromic normocytic anemia: (7) Severe protein-calorie malnutrition: (8) Depression: QUALIFIERS: Depression Type: major depressive disorder Major depression recurrence: unspecified whether recurrent Active/Remission status: currently active Major depression episode severity: severe Psychotic features: without psychotic features Qualified Code(s): F32.2 - Major depressive disorder, single episode, severe without psychotic features (9) Anxiety: (10) Protein S deficiency: (11) 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: (12) COPD (chronic obstructive pulmonary disease): QUALIFIERS: COPD type: unspecified COPD Qualified Code(s): J44.9 - Chronic obstructive pulmonary disease, unspecified (13) Current smoker: (14) Dyslipidemia: (15) Chronic pain syndrome: (16) Chronic neck pain: (17) Chronic back pain: QUALIFIERS: Back pain location: low back pain Back pain laterality: bilateral Sciatica presence: without sciatica Qualified Code(s): M54.50 - Low back pain, unspecified; G89.29 - Other chronic pain (18) Migraine: QUALIFIERS: Migraine type: chronic without aura Status migrainosus presence: without status migrainosus Intractability: not intractable Qualified Code(s): G43.709 - Chronic migraine without aura, not intractable, without status migrainosus (19) Singultus: PLAN: Plan 1. continue therapy - he is not eating and sleeping most of the time when he is not in therapy 2. He is going to meet with palliative/hospice. The way he is going I do not see him being able to tolerate chemo and/or radiation. Hopefully the increase in the Remeron will help in the next few weeks. He adamantly denies that he will take chemo. We discussed that there is no surgical option for tx. 3. Will address his code status with him again prior to DC. Charges/Coding Visit Charges Inpatient E&M: 89764 Subs Hosp L2
--- NOTE | 2023-03-07 14:33 | CASEMGMT ---
Addendum entered by Odalys Leahy 03/07/23 14:50: w/c transport scheduled through [facility] for 1300. Original Note: Social Work Insurance approved with [employer] 03/12, DC 03/13. IDT and pt agreeable to DC 03/13. Pt signed for palliative services. SW phoned [facility] Team on Saturday. Niece works and cannot transport to [facility]. SW to schedule w/c transport. 7000 started. Plan: DC 03/13 to [facility], intermediate, part B therapies, palliative Odalys Leahy, [employer]
[2023-03-07 15:25] VITALS: BMI 19.8
[2023-03-07] MEDS: Insulin Lispro 100 UNIT/ML INSULN.PEN 8 UNIT SC (18:22)
[2023-03-07 18:43] LABS: Bedside Glucose 194 mg/dL (74-106)
[2023-03-07 19:29] VITALS: BP 106/47; PULSE 69; RESP 16; TEMP 36.8; O2SAT 94
[2023-03-07] MEDS: Mirtazapine 30 MG Tablet PO (19:59)
[2023-03-07] MEDS: Polyethylene Glycol 3350 17 GM PACKET PO (20:00)
[2023-03-07] MEDS: Nortriptyline 10 MG Capsule PO (20:00)
[2023-03-07] MEDS: Atorvastatin Calcium 40 MG Tablet PO (20:00)
[2023-03-07] MEDS: Senna/Docusate Sodium 1 Tablet 2 TABLET PO (20:01)
[2023-03-07 20:14] VITALS: RESP 16; O2SAT 96
[2023-03-07 22:17] LABS: Bedside Glucose 174 mg/dL (74-106)
[2023-03-07] MEDS: Insulin Glargine-YFGN 100 UNIT/ML Pen 18 UNIT SC (22:26)
[2023-03-08 00:05] VITALS: BMI 19.8
[2023-03-08 03:57] LABS: Bedside Glucose 186 mg/dL (74-106)
[2023-03-08] MEDS: Ascorbic Acid 500 MG Tablet PO ×3 (05:06→21:02)
[2023-03-08 05:53] VITALS: BMI 19.7
[2023-03-08 06:33] LABS: Bedside Glucose 167 mg/dL (74-106)
[2023-03-08 07:33] VITALS: BP 94/58; PULSE 88; RESP 16; TEMP 36.8; O2SAT 93
[2023-03-08] MEDS: Aspirin 81 MG TAB.CHEW PO (07:51)
[2023-03-08] MEDS: Insulin Lispro 100 UNIT/ML INSULN.PEN 6 UNIT SC (07:51)
[2023-03-08 08:15] VITALS: PULSE 64; RESP 20; O2SAT 94
[2023-03-08] MEDS: Umeclidinium Bromide Inhaler 1 PUFF INHALATION (09:12)
[2023-03-08] MEDS: Na Biphos/Potassium Phosphate PACKET 1 PACKET PO ×3 (09:13→21:01)
[2023-03-08] MEDS: Pantoprazole Sodium 40 MG Tablet PO (09:13)
[2023-03-08] MEDS: Senna/Docusate Sodium 1 Tablet 2 TABLET PO ×2 (09:13→20:59)
[2023-03-08] MEDS: Atenolol 25 MG Tablet PO (09:13)
[2023-03-08] MEDS: APIXABAN 5 MG TABLET PO ×2 (09:42→21:00)
[2023-03-08] MEDS: Petrolatum 33% Tube 1 APPLIC TOPICAL ×2 (09:43→21:04)
[2023-03-08 10:04] VITALS: O2SAT 98
[2023-03-08 11:20] LABS: Bedside Glucose 123 mg/dL (74-106)
[2023-03-08 16:41] LABS: Bedside Glucose 206 mg/dL (74-106)
[2023-03-08] MEDS: Ergocalciferol 1.25 MG (50, 000 UNIT) Capsule PO (17:49)
[2023-03-08] MEDS: Insulin Lispro 100 UNIT/ML INSULN.PEN 8 UNIT SC (17:50)
[2023-03-08 20:36] VITALS: BP 103/67; PULSE 72; RESP 16; TEMP 36.8; O2SAT 94
[2023-03-08 20:46] VITALS: PULSE 70
[2023-03-08] MEDS: Mirtazapine 30 MG Tablet PO (20:59)
[2023-03-08] MEDS: Atorvastatin Calcium 40 MG Tablet PO (21:00)
[2023-03-08] MEDS: Polyethylene Glycol 3350 17 GM PACKET PO (21:01)
[2023-03-08] MEDS: Nortriptyline 10 MG Capsule PO (21:03)
[2023-03-08] MEDS: Insulin Glargine-YFGN 100 UNIT/ML Pen 18 UNIT SC (21:15)
[2023-03-08 23:52] LABS: Bedside Glucose 157 mg/dL (74-106)
[2023-03-09 01:48] LABS: Bedside Glucose 126 mg/dL (74-106)
[2023-03-09 02:59] VITALS: BMI 19.7
[2023-03-09 05:00] VITALS: BMI 19.2
[2023-03-09] MEDS: Ascorbic Acid 500 MG Tablet PO ×3 (05:01→21:05)
[2023-03-09 07:00] LABS: Bedside Glucose 161 mg/dL (74-106)
[2023-03-09] MEDS: Insulin Lispro 100 UNIT/ML INSULN.PEN 6 UNIT SC (07:55)
[2023-03-09] MEDS: Na Biphos/Potassium Phosphate PACKET 1 PACKET PO ×4 (07:56→21:03)
[2023-03-09] MEDS: Pantoprazole Sodium 40 MG Tablet PO (07:56)
[2023-03-09] MEDS: Umeclidinium Bromide Inhaler 1 PUFF INHALATION (07:56)
[2023-03-09] MEDS: Aspirin 81 MG TAB.CHEW PO (07:56)
[2023-03-09] MEDS: Senna/Docusate Sodium 1 Tablet 2 TABLET PO ×2 (07:58→21:05)
[2023-03-09] MEDS: Atenolol 25 MG Tablet PO (07:59)
[2023-03-09] MEDS: APIXABAN 5 MG TABLET PO ×2 (07:59→21:04)
[2023-03-09 08:00] VITALS: BP 112/77; PULSE 79; RESP 17; TEMP 36.7; O2SAT 97
[2023-03-09] MEDS: oxyCODONE 5 MG Tablet PO (08:02)
[2023-03-09] MEDS: BUPRENORPHINE 15 MCG/HR PATCH 1 EACH TD (11:17)
[2023-03-09] MEDS: Polyethylene Glycol 3350 17 GM PACKET PO ×2 (11:20→21:03)
[2023-03-09 11:38] LABS: Bedside Glucose 94 mg/dL (74-106)
[2023-03-09 12:53] VITALS: BMI 19.2
[2023-03-09 16:36] LABS: Bedside Glucose 80 mg/dL (74-106)
[2023-03-09] MEDS: Insulin Lispro 100 UNIT/ML INSULN.PEN 8 UNIT SC (18:01)
[2023-03-09 19:25] VITALS: BP 98/56; PULSE 79; RESP 15; TEMP 36.9; O2SAT 98
[2023-03-09 19:27] VITALS: PULSE 79
[2023-03-09] MEDS: Nortriptyline 10 MG Capsule PO (21:03)
[2023-03-09] MEDS: Atorvastatin Calcium 40 MG Tablet PO (21:03)
[2023-03-09] MEDS: Insulin Glargine-YFGN 100 UNIT/ML Pen 18 UNIT SC (21:03)
[2023-03-09] MEDS: Petrolatum 33% Tube 1 APPLIC TOPICAL (21:04)
[2023-03-09] MEDS: Mirtazapine 30 MG Tablet PO (21:04)
[2023-03-09 21:18] LABS: Bedside Glucose 242 mg/dL (74-106)
[2023-03-10 02:18] LABS: Bedside Glucose 181 mg/dL (74-106)
[2023-03-10 04:50] VITALS: BMI 19.2
[2023-03-10] MEDS: Ascorbic Acid 500 MG Tablet PO ×3 (05:32→19:41)
[2023-03-10 05:34] VITALS: BMI 19.6
[2023-03-10 06:05] LABS: Bedside Glucose 170 mg/dL (74-106)
[2023-03-10 08:00] VITALS: BP 104/58; PULSE 81; RESP 16; TEMP 36.7; O2SAT 98
[2023-03-10] MEDS: Pantoprazole Sodium 40 MG Tablet PO (08:14)
[2023-03-10] MEDS: APIXABAN 5 MG TABLET PO ×2 (08:14→19:41)
[2023-03-10] MEDS: Atenolol 25 MG Tablet PO (08:15)
[2023-03-10] MEDS: Aspirin 81 MG TAB.CHEW PO (08:16)
[2023-03-10] MEDS: Na Biphos/Potassium Phosphate PACKET 1 PACKET PO ×4 (08:17→19:41)
[2023-03-10] MEDS: Insulin Lispro 100 UNIT/ML INSULN.PEN 6 UNIT SC (08:17)
[2023-03-10] MEDS: Umeclidinium Bromide Inhaler 1 PUFF INHALATION (08:19)
[2023-03-10 10:53] VITALS: BMI 19.6
[2023-03-10 12:10] LABS: Bedside Glucose 137 mg/dL (74-106)
[2023-03-10 17:11] LABS: Bedside Glucose 192 mg/dL (74-106)
[2023-03-10] MEDS: Insulin Lispro 100 UNIT/ML INSULN.PEN 8 UNIT SC (17:24)
[2023-03-10] MEDS: oxyCODONE 5 MG Tablet PO (17:32)
[2023-03-10 19:03] VITALS: BP 102/60; PULSE 79; RESP 16; TEMP 36.4; O2SAT 98
[2023-03-10] MEDS: Mirtazapine 30 MG Tablet PO (19:40)
[2023-03-10] MEDS: Nortriptyline 10 MG Capsule PO (19:41)
[2023-03-10] MEDS: Senna/Docusate Sodium 1 Tablet 2 TABLET PO (19:41)
[2023-03-10] MEDS: Polyethylene Glycol 3350 17 GM PACKET PO (19:41)
[2023-03-10] MEDS: Atorvastatin Calcium 40 MG Tablet PO (19:42)
[2023-03-10] MEDS: Petrolatum 33% Tube 1 APPLIC TOPICAL (19:45)
[2023-03-10] MEDS: Insulin Glargine-YFGN 100 UNIT/ML Pen 18 UNIT SC (21:20)
[2023-03-10 21:41] LABS: Bedside Glucose 254 mg/dL (74-106)
[2023-03-11 00:13] VITALS: BMI 19.6
[2023-03-11 02:30] LABS: Bedside Glucose 160 mg/dL (74-106)
[2023-03-11] MEDS: Ascorbic Acid 500 MG Tablet PO ×3 (05:17→19:43)
[2023-03-11 06:00] VITALS: BMI 19.2
[2023-03-11 06:28] LABS: Bedside Glucose 137 mg/dL (74-106)
[2023-03-11 07:06] VITALS: BP 131/75; PULSE 84; RESP 15; TEMP 37.2; O2SAT 100
[2023-03-11] MEDS: Aspirin 81 MG TAB.CHEW PO (07:54)
[2023-03-11] MEDS: Senna/Docusate Sodium 1 Tablet 2 TABLET PO ×2 (07:54→19:42)
[2023-03-11] MEDS: APIXABAN 5 MG TABLET PO ×2 (07:54→19:41)
[2023-03-11] MEDS: Atenolol 25 MG Tablet PO (07:54)
[2023-03-11] MEDS: Pantoprazole Sodium 40 MG Tablet PO (07:54)
[2023-03-11] MEDS: Na Biphos/Potassium Phosphate PACKET 1 PACKET PO ×4 (07:55→19:41)
[2023-03-11] MEDS: Insulin Lispro 100 UNIT/ML INSULN.PEN 6 UNIT SC (07:57)
[2023-03-11] MEDS: Umeclidinium Bromide Inhaler 1 PUFF INHALATION (08:00)
[2023-03-11 08:12] VITALS: O2SAT 97
[2023-03-11 10:13] VITALS: O2SAT 100
[2023-03-11 11:19] LABS: Bedside Glucose 300 mg/dL (74-106)
--- NOTE | 2023-03-11 11:34 | PN_ITS ---
Subjective Subjective Delvin was seen on team rounds today. His niece Nataly was present in the room. Afebrile VSS Maintaining appropriate oxygen saturation on RA Oral intake is fair The blood sugar record was reviewed. BS's are erratic. He is now on a regular diet because he would not eat when on carb control because he would not get what he ordered. No hypoglycemia over the weekend. Discussed with nursing - Getting up on his own and not ringing for the NA to assist. Refusing ADL care. Reviewed the PT/OT/ST notes Medication list reviewed. Delvin laid in bed with his eyes closed for the duration of TEAM meeting and did not pay attention. He did respond when I directly addressed him but, I had to repeat myself. He has been refusing therapy at times. Nataly tells me that he never c/o pain to her and he never complains to me either. If I ask him about his TAYLOR's he complains and today he says the TAYLOR is in the bifrontal area and not the neck and occiput. He is only taking 1 Oxycodone daily. He is not responding to questions about bowels, dysuria, etc. He does not appear to be in any distress. He denies having hiccups any longer and also is not c/o heartburn. He tells me that nothing we are doing is helping the TAYLOR's. All lab today was personally reviewed. White blood cell count is normal at 4.7. Hemoglobin is 9.7, down from 11.4 on 03/04/2023. Platelets are within normal limits. Sodium is stable at 135 and the potassium is 4.4. The BUN is 15 with a creatinine of 0.74 which is stable. Magnesium is low normal at 1.7. Objective Data Objective Data Vital Signs: Vital Signs Temp Pulse Resp BP Pulse Ox O2 Del Method O2 Flow Rate 99.0 F 84 15 131/75 H 100 Room Air 2 03/11/23 07:06 03/11/23 07:06 03/11/23 07:06 03/11/23 07:06 03/11/23 10:13 03/11/23 07:06 03/11/23 10:13 FiO2 98 03/10/23 20:56 Oxygen Flow Rate (L/min) 2 Oxygen Delivery Method Room Air Weight: 132 lb 7.965 oz Body Mass Index (BMI) 19.6 Intake & Output: Intake and Output for Last 24 Hours 03/09/23 03/10/23 03/11/23 23:59 23:59 23:59 Intake Total 860 / 860 900 / 990 330 / 330 Output Total 0 / 0 900 / 1200 700 / 700 Balance 860 / 860 0 / -210 -370 / -370 Medical Nutrition Assessment Dietitian: Malnutrition Criteria Met Start: 02/23/23 10:38 Freq: Status: Active Protocol: Document 03/04/23 14:32 ABDIEL (Rec: 03/04/23 14:33 [facility] [id number]) Nutrition Malnutrition Evidence of Malnutrition Exists Yes Malnutrition (moderate): Acute Illness/Injury Evidenced By Weight Loss (Severe),Physical Changes (Moderate) Clinical Problem Acute Disease or Injury Related Malnutrition Etiology 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 and inability to consume adequate energy intake Signs/Symptoms as evidenced by generalized mod fat/muscle loss and 20% unintended wt loss x 2.5 months pilot captain Status Active Problem Biting/Chewing Difficulty Status Inactive Problem Altered Nutrient-Related Laboratory Values Etiology related to diabetes and pt not on cho controlled diet at home Signs/Symptoms as evidenced by a1c = 7.5 Status Active Problem Recommendation Dietitian Recommendations/Changes Will continue CHO Control/ Cardiac diet d/t elevated a1c Will discontinue 120 ml glucerna shake tid w/ medpass d/t pt refusal x past 4 days Available for diet education if desired by pt. Please weigh pt only on standing scale for better accuracy. Lab / Micro Data 03/11/23 12:32 03/11/23 12:32 Labs: Laboratory Results - last 24 hr 03/10/23 11:51: POC Glucose 137 H 03/10/23 16:53: POC Glucose 192 H 03/10/23 21:18: POC Glucose 254 H 03/11/23 02:12: POC Glucose 160 H 03/11/23 06:10: POC Glucose 137 H 03/11/23 11:00: POC Glucose 300 H Physical Exam Const Constitutional Narrative: Keeping his eyes closed while talking to me. [place] and I have to repeat myself. Non-cooperative at times. Refusing therapy at times. Nataly agrees that he seems angry. She has been very supportive of him. Resp Resp Narrative: Poor air exchange throughout with no rales or wheezes. He is not tachypneic and breathing is not labored. He is on 2 LPM O2......mostly for comfort. He will be on palliative care at [facility].He has made progress with therapy. Cardio regular rate, regular rhythm and no gallops Cardio Narrative: Distant heart sounds. GI normal to inspection, nondistended, normoactive bowel sounds, soft to palpation and non-tender Extremity no calf tenderness General Extremity: Negative for edema Skin General Skin Exam: no breakdown Rashes: no rashes Assessment & Plan Assessment/Plan (1) Debility: (2) Hemorrhagic cerebrovascular accident (CVA): (3) Lung cancer: QUALIFIERS: Laterality: right Lung location: unspecified part of lung Qualified Code(s): C34.91 - Malignant neoplasm of unspecified part of right bronchus or lung PLAN: Squamous cell, right hilum (4) Diabetes mellitus, type 2: QUALIFIERS: Diabetes mellitus buttermaker continuous churn insulin use: without [facility] use Diabetes mellitus complication status: with circulatory complication Diabetes mellitus complication detail: with other circulatory complications Qualified Code(s): E11.59 - Type 2 diabetes mellitus with other circulatory complications PLAN: Bs's are very erratic due to erratic food intake. He refuses to eat a carb control diet and is now on a regular diet......had pancakes with syrup for breakfast and ate everything so the BS at lunch is 300. (5) Hypophosphatemia: PLAN: resolved (6) Normochromic normocytic anemia: PLAN: HGB has dropped a little. (7) Severe protein-calorie malnutrition: (8) Depression: QUALIFIERS: Depression Type: major depressive disorder Major depression recurrence: unspecified whether recurrent Active/Remission status: currently active Major depression episode severity: severe Psychotic features: without psychotic features Qualified Code(s): F32.2 - Major depressive disorder, single episode, severe without psychotic features (9) Anxiety: (10) Protein S deficiency: (11) Current use of [facility] anticoagulation: (12) COPD (chronic obstructive pulmonary disease): QUALIFIERS: COPD type: unspecified COPD Qualified Code(s): J44.9 - Chronic obstructive pulmonary disease, unspecified (13) Current smoker: (14) Dyslipidemia: (15) Chronic pain syndrome: (16) Chronic neck pain: (17) Chronic back pain: QUALIFIERS: Back pain location: low back pain Back pain laterality: bilateral Sciatica presence: without sciatica Qualified Code(s): M54.50 - Low back pain, unspecified; G89.29 - Other chronic pain (18) Migraine: QUALIFIERS: Migraine type: chronic without aura Status migrainosus presence: without status migrainosus Intractability: not intractable Qualified Code(s): G43.709 - Chronic migraine without aura, not intractable, without status migrainosus PLAN: suspected (19) Singultus: PLAN: resolved PLAN: Plan 1. Plan DC to [facility] on palliative Saturday. 2. Continue the regular diet and add a SSI regimen TID AC. Continue the current dose of Glargine. DC Victoza -this will not prolong his life....he will likely of lung cancer. It is not resectable and he refuses to consider chemo so all that is left for him is radiation. 3. Continue Remeron. 4. DC nortriptyline since it is not helping with his headaches per the patient. 5. Check a Hemoccult stool. Continue apixaban for protein S deficiency. Continue pantoprazole. Charges/Coding Visit Charges Inpatient E&M: 77151 Subs Hosp L2
[2023-03-11] MEDS: Insulin Lispro 100 UNIT/ML INSULN.PEN SC (12:24)
[2023-03-11 12:43] LABS: Hematocrit 32.5 % (40-54); Hemoglobin 9.7 g/dL (13.0-16.5); Mean Corp Hgb Conc 29.8 g/dL (32-36); Mean Corpuscular Hgb 26.7 pg (27.0-32.0); Mean Corpuscular Volume 89.5 fL (80-94); Mean Platelet Vol. 10.9 fl (6.2-12.0); Platelet Count 200 K/mm3 (150-450); RBC Distribution Width CV 15.8 % (11.6-14.6); RBC Distribution Width SD 51.5 fl (35.1-43.9); Red Blood Count 3.63 M/mm3 (4.6-6.2); White Blood Count 4.7 K/mm3 (4.4-11.0)
--- NOTE | 2023-03-11 12:49 | CASEMGMT ---
Social Work IDT met with patient and niece for Team meeting. Pt asleep and not participatory in meeting. Discussed patient's progress in PT/OT/ST/SN. Confirmed DC to 03/13 to [facility]. No other issues noted. Odalys Leahy, MACHINE CARTON MARKER HUMAN RESOURCES EXECUTIVE
[2023-03-11 12:55] VITALS: BMI 19.2
[2023-03-11 13:48] LABS: ALB/GLOB Ratio 0.7 RATIO (0.9-2.4); AST(SGOT) 14 U/L (15-37); Alanine Aminotransfer ALT/SGPT 16 U/L (16-61); Albumin, Serum 2.6 g/dL (3.2-5.0); Alkaline Phosphatase 100 U/L (45-117); Anion Gap 4 (5-15); BUN 15 mg/dL (7-18); BUN/Creat Ratio 20.3 RATIO (10-20); Calcium,Total 8.8 mg/dL (8.5-10.1); Chloride 102 mmol/L (98-107); Creatinine, Serum 0.74 mg/dL (0.70-1.30); EST Glomerular Filtration Rate 112 mL/min (>60); Est Glom Filt Rate - Afr Amer 136 mL/min (>60); Estimated Creatinine Clearance 59.82 ml/min; Globulin 3.8 g/dL (2.2-4.2); Glucose 329 mg/dL (74-106); Magnesium 1.7 mg/dL (1.6-2.6); Phosphorus 2.9 mg/dL (2.5-4.9); Potassium 4.4 mmol/L (3.5-5.1); Protein, Total 6.4 g/dL (6.4-8.2); Sodium Level 135 mmol/L (136-145)
[2023-03-11] MEDS: oxyCODONE 5 MG Tablet PO (16:32)
[2023-03-11 16:55] LABS: Bedside Glucose 112 mg/dL (74-106)
[2023-03-11] MEDS: Insulin Lispro 100 UNIT/ML INSULN.PEN 8 UNIT SC (17:50)
[2023-03-11 19:02] VITALS: BP 92/59; PULSE 78; RESP 15; TEMP 37; O2SAT 97
[2023-03-11] MEDS: Mirtazapine 30 MG Tablet PO (19:41)
[2023-03-11] MEDS: Polyethylene Glycol 3350 17 GM PACKET PO (19:41)
[2023-03-11] MEDS: Nortriptyline 10 MG Capsule PO (19:42)
[2023-03-11] MEDS: Atorvastatin Calcium 40 MG Tablet PO (19:43)
[2023-03-11] MEDS: Insulin Glargine-YFGN 100 UNIT/ML Pen 18 UNIT SC (21:29)
[2023-03-11 21:49] LABS: Bedside Glucose 188 mg/dL (74-106)
[2023-03-12 02:29] LABS: Bedside Glucose 103 mg/dL (74-106)
[2023-03-12 02:57] VITALS: BMI 19.2
[2023-03-12 06:00] VITALS: BMI 19.3
[2023-03-12] MEDS: Ascorbic Acid 500 MG Tablet PO ×3 (06:30→21:52)
[2023-03-12 06:53] LABS: Bedside Glucose 116 mg/dL (74-106)
[2023-03-12 07:19] VITALS: BP 111/73; PULSE 76; RESP 20; TEMP 36.4; O2SAT 99
[2023-03-12] MEDS: Umeclidinium Bromide Inhaler 1 PUFF INHALATION (08:33)
[2023-03-12] MEDS: Pantoprazole Sodium 40 MG Tablet PO (08:34)
[2023-03-12] MEDS: Aspirin 81 MG TAB.CHEW PO (08:34)
[2023-03-12] MEDS: Na Biphos/Potassium Phosphate PACKET 1 PACKET PO ×4 (08:34→21:52)
[2023-03-12] MEDS: APIXABAN 5 MG TABLET PO ×2 (08:35→21:52)
[2023-03-12] MEDS: Insulin Lispro 100 UNIT/ML INSULN.PEN 6 UNIT SC (08:35)
[2023-03-12] MEDS: Atenolol 25 MG Tablet PO (08:36)
[2023-03-12] MEDS: Senna/Docusate Sodium 1 Tablet 2 TABLET PO ×2 (08:36→21:52)
[2023-03-12] MEDS: Petrolatum 33% Tube 1 APPLIC TOPICAL ×2 (08:49→21:57)
[2023-03-12 11:23] LABS: Bedside Glucose 214 mg/dL (74-106)
[2023-03-12] MEDS: Insulin Lispro 100 UNIT/ML INSULN.PEN SC ×2 (12:16→17:13)
--- NOTE | 2023-03-12 14:29 | PCM.TXEXTCAR ---
Diet Diet Order/Speech Therapy: 03/05/23 15:26 Diet: Regular - General Food consistency:: Easy to Chew Liquid Consistency:: Regular/Thin Dietary Modifications:: Consistent Carbohydrate Cardiac / Heart Healthy Is pt able to select menu?: Yes Routine Orders/Code Status Enema Type: Fleetz Enema Frequency: Daily PRN Suppository Type: Dulcolax 10mg Suppository Frequency: Daily PRN O2 Liters per Minute: 2 LPM O2 Frequency: PRN Keep PO Greater than or Equal to (%): 90 Routine Lab Work: CBC (03/14/23) and BMP (03/14/2023) Wound(s) right chest: Wound Type: Surgical Incision rt upper back: Wound Type: Abrasion bilat elbows: Wound Type: Abrasion left forearm: Wound Type: Abrasion Therapies Weight Bearing: Full weight bearing Physical Therapy: Eval and Treat Occupational Therapy: Eval and Treat Problem/Diagnosis (1) Debility: Status: Acute Code(s): R53.81 - Other malaise Comment: Pt was declining even prior to the stroke with unexplained wt loss, increasing weakness, neglect of his hygiene and ARF due to dehydration. I suspect he may have had an ischemic stroke prior to the hemorrhage because he tells me he was confused and could not stand up straight. He fell outside and I suspect he hit his head and then hemorrhaged since he was on anticoagulation at the time. He has a Protein S deficiency. (2) Hemorrhagic cerebrovascular accident (CVA): Status: Acute Code(s): I61.9 - Nontraumatic intracerebral hemorrhage, unspecified (3) Lung cancer: Status: Acute Code(s): C34.90 - Malignant neoplasm of unspecified part of unspecified bronchus or lung Plan: Squamous cell, right hilum. He will follow up with oncology at [facility] post DC. He is adamant about not wanting chemotherapy and there is no surgical option for the large R hilar mass so that leaves radiation. (4) Diabetes mellitus, type 2: Status: Chronic Code(s): E11.9 - Type 2 diabetes mellitus without complications Plan: Bs's are very erratic due to erratic food intake. He refuses to eat a carb control diet and is now on a regular diet......had pancakes with syrup for breakfast and ate everything so the BS at lunch is 300. I added SSI at mealtime and the sugars are better controlled and he has no hypoglycemia. Comment: uncontrolled (5) Hypophosphatemia: Status: Resolved Code(s): E83.39 - Other disorders of phosphorus metabolism Plan: Resolved with supplementation of phosphorous. (6) Normochromic normocytic anemia: Status: Chronic Code(s): D64.9 - Anemia, unspecified Plan: HGB has dropped a from 12.1 to 9.7 since admission to acute rehab. He is on a PPI. Hemoccult stool had been ordered but, it has not been collected at the time I am doing these DC orders. This is not due to state of hydration since the BUN/creat have been stable. (7) Severe protein-calorie malnutrition: Status: Acute Code(s): E43 - Unspecified severe protein-calorie malnutrition (8) Depression: Status: Acute Code(s): F32.A - Depression, unspecified Plan: Continue Remeron at 30 mg Q HS. 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 (11) Current use of correction anticoagulation: Status: Chronic Code(s): Z79.01 - termite treater (current) use of anticoagulants Plan: Will be discharging of Eliquis 5 mg BID (12) COPD (chronic obstructive pulmonary disease): Status: Chronic Code(s): J44.9 - Chronic obstructive pulmonary disease, unspecified (13) Current smoker: Status: Chronic Code(s): F17.200 - Nicotine dependence, unspecified, uncomplicated (14) Dyslipidemia: Status: Chronic Code(s): E78.5 - Hyperlipidemia, unspecified (15) Chronic pain syndrome: Status: Chronic Code(s): G89.4 - Chronic pain syndrome Plan: Continue the buprenorphine patch at [facility]. He is a patient of Dr. Rice as an OP but, palliative care will be managing his pain medications at [facility]. (16) Chronic neck pain: Status: Chronic Code(s): M54.2 - Cervicalgia; G89.29 - Other chronic pain (17) Chronic back pain: Status: Chronic Code(s): M54.9 - Dorsalgia, unspecified; G89.29 - Other chronic pain (18) Migraine: Status: Chronic Code(s): G43.909 - Migraine, unspecified, not intractable, without status migrainosus Plan: suspected Comment: He gets very frequent TAYLOR's associated with photophobia and N/V. Never diagnosed with migraines. No improvement with a TCA. Can not give a Triptan due to the stroke. He says he is no better but, he complained regularly about TAYLOR's when he first arrived on rehab and now he never complains to me about pain. (19) Singultus: Status: Resolved Code(s): R06.6 - Hiccough Plan: Resolved with tx of GERD Plan 1. Plan DC to [facility] on palliative Saturday. 2. Continue the regular diet and add a SSI regimen TID AC. Continue the current dose of Glargine. DC Victoza -this will not prolong his life....he will likely of lung cancer. It is not resectable and he refuses to consider chemo so all that is left for him is radiation. 3. Continue Remeron. 4. DC nortriptyline since it is not helping with his headaches per the patient. 5. Check a Hemoccult stool. Continue apixaban for protein S deficiency. Continue pantoprazole. Allergies/Procedures Done in Hospital Allergies tramadol Allergy (Verified 02/06/23 11:17) Other seizure Procedures: None Type of Care/Length of Stay Estimated LOS: More Than 30 Days Type of Care Needed: Intermediate Rehab Potential: Poor Prognosis: Poor Additional Orders/Day of Discharge Additional Orders: Delvin is no longer in denial about the lung cancer. He has moved on to anger. He picks and chooses what he will and won't do and he continues to get up and go to the BR without assistance despite being told this is not allowed. Sometimes he eats and others he won't. The sliding scale insulin at meals helps to control the blood sugars when he eats something very sweet and the BS increase to 300. He has not had any hypoglycemia with the current dose of Glargine and the Lispro at breakfast and dinner. H&P will serve as current which was dated: 02/24/23 Day of Discharge: 03/13/23 Dietary and Speech Recommendations Dietitian Recommendations/Changes: Will continue regular diet - will not eat when he does not get what he wants. At this point in his life tightly controlling his BS's is not going to improve his longevity and he should eat what makes him happy. Will discontinue 120 ml glucerna shake tid w/ medpass d/t pt refusal x past 4 days Available for diet education if desired by pt. Please weigh pt only on standing scale for better accuracy. Discharge Plan Admission Admit Date/Time: 02/22/23 13:58 Primary Reason for Your Visit: Post stroke debility Attending Provider: Zoya Teixeira Primary Care Provider: RENEA CORTES Consulting Providers: Jaunsz Mejia; Veronica Green; Pauline Abbott; Milly Coelho HOTEL DESK CLERK Discharge Orders/Prescriptions Prescriptions: New ergocalciferol (vitamin D2) [Vitamin D2] 1,250 mcg (50,000 unit) Capsule 1,250 mcg PO Q14D Qty: 1 0RF atenolol 25 mg Tablet 25 mg PO DAILY Qty: 1 0RF bisacodyl 10 mg Suppository 10 mg MO .PRN X 1 PRN (Reason: Constipation) Qty: 1 0RF insulin glargine-yfgn 100 unit/mL (3 mL) Insulin Pen 18 unit subcut QHS Qty: 15 0RF mirtazapine 30 mg Tablet 30 mg PO 2100 Qty: 1 0RF insulin lispro [Humalog KwikPen Insulin] 100 unit/mL Insulin Pen 8 unit subcut SUPPER Qty: 1 0RF insulin lispro [Humalog KwikPen Insulin] 100 unit/mL Insulin Pen 6 unit subcut BREAKFAST Qty: 1 0RF insulin lispro [Humalog KwikPen Insulin] 100 unit/mL Insulin Pen See Protocol subcut TIDAC Qty: 1 0RF Protocol: 4. Sliding Scale Insulin High-Med Dosing Condition: 150-199 mg/dl = 2 units Condition: 200-259 mg/dl = 4 units Condition: 260-324 mg/dl = 6 units Condition: 325-374 mg/dl = 8 units Condition: 375-409 mg/dl = 10 units Condition: 410-449 mg/dl = 11 units Condition: Greater than 449 call physician Protocol Text: - Use for Total Daily Dose of Insulin 56-80 units - Patient who are insulin resistant or septic HIGH MEDIUM DOSING ALGORITHM potassium, sodium phosphates 280-160-250 mg Powder In Packet 1 packet PO BID Qty: 1 0RF oxycodone 5 mg Tablet 5 mg PO Q6H PRN PRN (Reason: Pain Score 6-10) 7 Days Qty: 10 0RF polyethylene glycol 3350 17 gram Powder In Packet 17 g PO DAILY Qty: 1 0RF pantoprazole 40 mg Tablet,Delayed Release (Dr/Ec) 40 mg PO DAILY Qty: 1 0RF acetaminophen [Tylenol] 325 mg capsule 650 mg PO Q4H PRN (Reason: fever or pain) Qty: 1 0RF Continued glimepiride 2 MG tablet 2 mg PO DAILY ascorbic acid (vitamin C) 500 mg tablet,chewable 500 mg PO TID atorvastatin 40 mg tablet 40 mg PO DAILY Lactobacillus acidoph-L.bulgar [Floranex] 100 million cell granules in packet 1 packet PO TID sennosides-docusate sodium [Senna with Docusate Sodium] 8.6-50 mg tablet 2 tab-cap PO BID apixaban 5 mg tablet 5 mg PO BID Rx Instructions: Start taking on March 02, 2023 albuterol sulfate 90 mcg/actuation HFA aerosol inhaler 2 inh inhalation Q4H PRN (Reason: wheezing/shortness of breath) aspirin 81 mg tablet,chewable 1 tab PO DAILY Spiriva Respimat 2.5 mcg/actuation mist 2 inh inhalation DAILY buprenorphine 15 mcg/hour patch weekly 1 patch transdermal QWEEK Qty: 1 0RF Rx Instructions: change on Saturdays Discontinued Eliquis 5 MG tablet 5 mg PO BID metformin 500 MG tablet 500 mg PO BID pioglitazone 45 MG tablet 45 mg PO DAILY albuterol sulfate 1 INHALER inhaler 1 - 2 puff inhalation Q6H PRN PRN (Reason: COPD) Hold Instructions: taking scheduled tiotropium bromide 1 PUFF inhaler 1 puff inhalation DAILY Hold Instructions: Order Completed prednisone 20 MG tablet 60 mg PO DAILY Qty: 15 0RF Rx Instructions: With food oseltamivir 75 MG capsule 75 mg PO BID Qty: 10 0RF acetaminophen 500 mg tablet 1,000 mg PO TID Rx Instructions: Take for 5 days amoxicillin-pot clavulanate 875-125 mg tablet 1 tab PO BID Rx Instructions: Take for 14 days sitagliptin phosphate 100 mg tablet 100 mg PO DAILY Rx Instructions: Start taking on March 02, 2023 ergocalciferol (vitamin D2) 50,000 unit tablet PO Rx Instructions: Take one capsule by mouth every 2 weeks. pioglitazone 45 mg tablet 45 mg PO DAILY Referrals / Follow Up: RENEA CORTES [Other] Jean Rios [Other] - 03/21/23 2:20 am ([facility]) Truong Appiah [Other] - 03/21/23 10:00 am ([facility] ) Sofia Razo MD [Med Staff - Active Staff] - 03/27/23 3:30 pm Disposition Disposition (needs filled in before D/C Order can be placed): Intermediate Facility (3) Lung cancer Qualifiers: Laterality: right Lung location: unspecified part of lung Qualified Code(s): C34.91 - Malignant neoplasm of unspecified part of right bronchus or lung (4) Diabetes mellitus, type 2 Qualifiers: Diabetes mellitus complication detail: with other circulatory complications Diabetes mellitus complication status: with circulatory complication 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 insulin use: without correction use Qualified Code(s): E11.59 - Type 2 diabetes mellitus with other circulatory complications (8) Depression Qualifiers: Active/Remission status: currently active Depression Type: major depressive disorder Major depression episode severity: severe Major depression recurrence: unspecified whether recurrent Psychotic features: without psychotic features Qualified Code(s): F32.2 - Major depressive disorder, single episode, severe without psychotic features (12) COPD (chronic obstructive pulmonary disease) Qualifiers: COPD type: unspecified COPD Qualified Code(s): J44.9 - Chronic obstructive pulmonary disease, unspecified (17) Chronic back pain Qualifiers: Back pain laterality: bilateral Back pain location: low back pain Sciatica presence: without sciatica Qualified Code(s): M54.50 - Low back pain, unspecified; G89.29 - Other chronic pain (18) Migraine Qualifiers: Intractability: not intractable Migraine type: chronic without aura Status migrainosus presence: without status migrainosus Qualified Code(s): G43.709 - Chronic migraine without aura, not intractable, without status migrainosus
[2023-03-12 14:32] VITALS: BMI 19.3
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
[2023-03-12 16:56] LABS: Bedside Glucose 188 mg/dL (74-106)
[2023-03-12] MEDS: Insulin Lispro 100 UNIT/ML INSULN.PEN 8 UNIT SC (17:13)
[2023-03-12] MEDS: oxyCODONE 5 MG Tablet PO (17:22)
[2023-03-12 19:31] VITALS: BP 93/58; PULSE 86; RESP 16; TEMP 36.7; O2SAT 94
[2023-03-12 21:45] VITALS: BMI 19.3
[2023-03-12] MEDS: Mirtazapine 30 MG Tablet PO (21:52)
[2023-03-12] MEDS: Atorvastatin Calcium 40 MG Tablet PO (21:52)
[2023-03-12] MEDS: Nortriptyline 10 MG Capsule PO (21:52)
[2023-03-12] MEDS: Insulin Glargine-YFGN 100 UNIT/ML Pen 18 UNIT SC (21:55)
[2023-03-12 22:20] LABS: Bedside Glucose 137 mg/dL (74-106)
[2023-03-13 03:12] LABS: Bedside Glucose 165 mg/dL (74-106)
[2023-03-13 06:00] VITALS: BMI 19.7
[2023-03-13] MEDS: Ascorbic Acid 500 MG Tablet PO (06:08)
[2023-03-13 06:40] LABS: Bedside Glucose 153 mg/dL (74-106)
[2023-03-13 07:47] VITALS: BP 112/73; PULSE 96; RESP 16; TEMP 37.1; O2SAT 93
[2023-03-13] MEDS: Na Biphos/Potassium Phosphate PACKET 1 PACKET PO (07:57)
[2023-03-13] MEDS: Pantoprazole Sodium 40 MG Tablet PO (07:57)
[2023-03-13] MEDS: APIXABAN 5 MG TABLET PO (07:57)
[2023-03-13] MEDS: Umeclidinium Bromide Inhaler 1 PUFF INHALATION (07:57)
[2023-03-13] MEDS: Atenolol 25 MG Tablet PO (07:57)
[2023-03-13] MEDS: Insulin Lispro 100 UNIT/ML INSULN.PEN 6 UNIT SC (07:58)
[2023-03-13] MEDS: Aspirin 81 MG TAB.CHEW PO (07:58)
[2023-03-13] MEDS: Insulin Lispro 100 UNIT/ML INSULN.PEN SC (07:58)
[2023-03-13] MEDS: Petrolatum 33% Tube 1 APPLIC TOPICAL (08:03)
[2023-03-13] MEDS: oxyCODONE 5 MG Tablet PO (11:07)
[2023-03-13 11:19] LABS: Bedside Glucose 93 mg/dL (74-106)
--- NOTE | 2023-03-13 14:52 | NURSING ---
discharged to [facility]. report called to [facility]
[2023-03-13 14:54] VITALS: BMI 19.7
== END 2023-03-13 14:50 | disposition skilled nursing facility (03) | DRG 56 ==
PROVIDERS: Admitting Provider Internal Medicine; Visit Provider Internal Medicine
DX: I69.354 Hemiplegia and hemiparesis following cerebral infarction affecting left non-dominant side (principal); E43 Unspecified severe protein-calorie malnutrition; D68.59 Other primary thrombophilia; F33.2 Major depressive disorder, recurrent severe without psychotic features; C34.01 Malignant neoplasm of right main bronchus; Z68.1 Body mass index [BMI] 19.9 or less, adult; E83.39 Other disorders of phosphorus metabolism; E11.59 Type 2 diabetes mellitus with other circulatory complications; J44.9 Chronic obstructive pulmonary disease, unspecified; D64.9 Anemia, unspecified; E53.8 Deficiency of other specified B group vitamins; F41.9 Anxiety disorder, unspecified; I10 Essential (primary) hypertension; K21.9 Gastro-esophageal reflux disease without esophagitis; G43.701 Chronic migraine without aura, not intractable, with status migrainosus; E78.5 Hyperlipidemia, unspecified; F17.210 Nicotine dependence, cigarettes, uncomplicated; I69.322 Dysarthria following cerebral infarction; I69.321 Dysphasia following cerebral infarction; I69.392 Facial weakness following cerebral infarction; Z79.01 Long term (current) use of anticoagulants; G89.4 Chronic pain syndrome; Z79.84 Long term (current) use of oral hypoglycemic drugs; Z79.899 Other long term (current) drug therapy; Z86.711 Personal history of pulmonary embolism; Z86.718 Personal history of other venous thrombosis and embolism; Z79.82 Long term (current) use of aspirin
CPT/HCPCS: 36415; 71046; 80048; 80053; 82962; 83036; 83735; 84100; 85014; 85018; 85025; 85027; 92507; 92523; 92526; 92610; 94668; 96125; 97110; 97112; 97116; 97129; 97130; 97162; 97166; 97530; 97535; 97802

== ENCOUNTER → 2023-03-14 | Outpatient (REF) | payer MEDICARE, MEDICAID, SELFPAY ==
[2023-03-14 10:14] LABS: Hematocrit 34.5 % (40-54); Hemoglobin 10.7 g/dL (13.0-16.5); Mean Corpuscular Hgb 27.2 pg (27.0-32.0); Mean Corpuscular Volume 87.6 fL (80-94); Mean Platelet Vol. 11.2 fl (6.2-12.0); Platelet Count 198 K/mm3 (150-450); RBC Distribution Width CV 15.9 % (11.6-14.6); RBC Distribution Width SD 50.8 fl (35.1-43.9); Red Blood Count 3.94 M/mm3 (4.6-6.2); White Blood Count 5.4 K/mm3 (4.4-11.0)
[2023-03-14 11:03] LABS: Anion Gap 7 (5-15); BUN 14 mg/dL (7-18); BUN/Creat Ratio 22.8 RATIO (10-20); Calcium,Total 9.2 mg/dL (8.5-10.1); Chloride 104 mmol/L (98-107); Creatinine, Serum 0.61 mg/dL (0.70-1.30); EST Glomerular Filtration Rate 139 mL/min (>60); Est Glom Filt Rate - Afr Amer 168 mL/min (>60); Glucose 177 mg/dL (74-106); Potassium 4.1 mmol/L (3.5-5.1); Sodium Level 138 mmol/L (136-145)
== END ==
LOC: OLS.SW 06:45
PROVIDERS: Visit Provider Internal Medicine
DX: E11.9 Type 2 diabetes mellitus without complications (principal); E83.39 Other disorders of phosphorus metabolism; C34.90 Malignant neoplasm of unspecified part of unspecified bronchus or lung
CPT/HCPCS: 36415; 80048; 85027

== ENCOUNTER → 2023-03-18 | Outpatient (REF) | payer MEDICARE, MEDICAID, SELFPAY ==
[2023-03-18 09:04] LABS: Absolute Lymphocyte Count 1.48 X10^3/uL (0.83-4.51); Absolute Neutrophil Count 4.1 X10^3/uL (2.0-7.7); Basophil# 0.01 X10^3/uL; Basophil% 0.2 % (0-1); Eosinophil# 0.06 X10^3/uL; Hematocrit 34.2 % (40-54); Hemoglobin 10.8 g/dL (13.0-16.5); Lymphocyte # 1.48 X10^3/ul (0.83-4.51); Lymphocyte % 24.3 % (19-41); Mean Corp Hgb Conc 31.6 g/dL (32-36); Mean Corpuscular Hgb 27.3 pg (27.0-32.0); Mean Corpuscular Volume 86.6 fL (80-94); Mean Platelet Vol. 11.3 fl (6.2-12.0); Monocyte# 0.39 X10^3/uL; Monocyte% 6.4 % (0-10); NRBC Flagged by Analyzer 0 % (0-5); Neutrophil # 4.12 X10^3/uL (2.7-7.7); Neutrophil % 67.4 % (47-70); Platelet Count 217 K/mm3 (150-450); RBC Distribution Width CV 15.9 % (11.6-14.6); RBC Distribution Width SD 49.8 fl (35.1-43.9); Red Blood Count 3.95 M/mm3 (4.6-6.2); White Blood Count 6.1 K/mm3 (4.4-11.0)
[2023-03-18 09:13] LABS: Vitamin B12 723 pg/mL (211-911); Vitamin D,25 Hydroxy 64.3 ng/mL
[2023-03-18 09:36] LABS: Anion Gap 6 (5-15); BUN 19 mg/dL (7-18); BUN/Creat Ratio 28.8 RATIO (10-20); Calcium,Total 9.4 mg/dL (8.5-10.1); Chloride 104 mmol/L (98-107); Creatinine, Serum 0.66 mg/dL (0.70-1.30); EST Glomerular Filtration Rate 128 mL/min (>60); Est Glom Filt Rate - Afr Amer 155 mL/min (>60); Glucose 159 mg/dL (74-106); Potassium 3.5 mmol/L (3.5-5.1); Sodium Level 136 mmol/L (136-145); Thyroid Stim Hormone (TSH) 1.66 uIU/mL (0.358-3.74)
[2023-03-18 10:19] LABS: Hemoglobin A1c 7.7 % (3.8-5.6)
== END ==
LOC: OLS.SW 05:00
PROVIDERS: Visit Provider Internal Medicine
DX: E11.59 Type 2 diabetes mellitus with other circulatory complications (principal); J44.9 Chronic obstructive pulmonary disease, unspecified; E78.5 Hyperlipidemia, unspecified
CPT/HCPCS: 36415; 80048; 82306; 82607; 83036; 84443; 85025

== ENCOUNTER → 2023-03-21 | Outpatient (REF) | payer MEDICARE, MEDICAID, SELFPAY ==
[2023-03-21 09:36] LABS: Hematocrit 30.8 % (40-54); Hemoglobin 9.8 g/dL (13.0-16.5); Mean Corp Hgb Conc 31.8 g/dL (32-36); Mean Corpuscular Hgb 27.3 pg (27.0-32.0); Mean Corpuscular Volume 85.8 fL (80-94); Mean Platelet Vol. 11.2 fl (6.2-12.0); Platelet Count 208 K/mm3 (150-450); RBC Distribution Width CV 16.1 % (11.6-14.6); RBC Distribution Width SD 50.3 fl (35.1-43.9); Red Blood Count 3.59 M/mm3 (4.6-6.2); White Blood Count 6.3 K/mm3 (4.4-11.0)
[2023-03-21 09:53] LABS: Anion Gap 6 (5-15); BUN 17 mg/dL (7-18); BUN/Creat Ratio 29.4 RATIO (10-20); Calcium,Total 9.1 mg/dL (8.5-10.1); Chloride 104 mmol/L (98-107); Creatinine, Serum 0.58 mg/dL (0.70-1.30); EST Glomerular Filtration Rate 149 mL/min (>60); Est Glom Filt Rate - Afr Amer 180 mL/min (>60); Glucose 168 mg/dL (74-106); Potassium 4.2 mmol/L (3.5-5.1); Sodium Level 138 mmol/L (136-145)
== END ==
LOC: OLS.SW 04:00
PROVIDERS: Referring Provider Internal Medicine; Visit Provider Internal Medicine
DX: C34.90 Malignant neoplasm of unspecified part of unspecified bronchus or lung (principal); E11.9 Type 2 diabetes mellitus without complications; E83.39 Other disorders of phosphorus metabolism
CPT/HCPCS: 36415; 80048; 85027

== ENCOUNTER → 2023-03-25 | Outpatient (REF) | payer MEDICARE, MEDICAID, SELFPAY ==
[2023-03-25 09:48] LABS: Absolute Lymphocyte Count 2.23 X10^3/uL (0.83-4.51); Absolute Neutrophil Count 4.6 X10^3/uL (2.0-7.7); Basophil# 0.01 X10^3/uL; Basophil% 0.1 % (0-1); Eosinophil# 0.06 X10^3/uL; Eosinophils% 0.8 % (0-5); Hematocrit 31.7 % (40-54); Hemoglobin 9.9 g/dL (13.0-16.5); Lymphocyte # 2.23 X10^3/ul (0.83-4.51); Lymphocyte % 30.6 % (19-41); Mean Corp Hgb Conc 31.2 g/dL (32-36); Mean Corpuscular Volume 86.6 fL (80-94); Mean Platelet Vol. 10.9 fl (6.2-12.0); Monocyte# 0.34 X10^3/uL; Monocyte% 4.7 % (0-10); NRBC Flagged by Analyzer 0 % (0-5); Neutrophil # 4.62 X10^3/uL (2.7-7.7); Neutrophil % 63.4 % (47-70); Platelet Count 247 K/mm3 (150-450); RBC Distribution Width CV 16.6 % (11.6-14.6); RBC Distribution Width SD 52.2 fl (35.1-43.9); Red Blood Count 3.66 M/mm3 (4.6-6.2); White Blood Count 7.3 K/mm3 (4.4-11.0)
[2023-03-25 10:39] LABS: Anion Gap 7 (5-15); BUN 17 mg/dL (7-18); BUN/Creat Ratio 27.9 RATIO (10-20); Calcium,Total 9.4 mg/dL (8.5-10.1); Chloride 103 mmol/L (98-107); Creatinine, Serum 0.61 mg/dL (0.70-1.30); EST Glomerular Filtration Rate 140 mL/min (>60); Est Glom Filt Rate - Afr Amer 169 mL/min (>60); Glucose 192 mg/dL (74-106); Potassium 3.8 mmol/L (3.5-5.1); Sodium Level 138 mmol/L (136-145)
== END ==
LOC: OLS.SW 04:00
PROVIDERS: Referring Provider Internal Medicine; Visit Provider Internal Medicine
DX: J44.9 Chronic obstructive pulmonary disease, unspecified (principal); E78.5 Hyperlipidemia, unspecified; E11.59 Type 2 diabetes mellitus with other circulatory complications
CPT/HCPCS: 36415; 80048; 85025

== ENCOUNTER → 2023-03-28 | Outpatient (REF) | payer MEDICARE, MEDICAID, SELFPAY ==
[2023-03-28 09:10] LABS: Hematocrit 30.4 % (40-54); Hemoglobin 9.3 g/dL (13.0-16.5); Mean Corp Hgb Conc 30.6 g/dL (32-36); Mean Corpuscular Hgb 27.1 pg (27.0-32.0); Mean Corpuscular Volume 88.6 fL (80-94); Mean Platelet Vol. 11.3 fl (6.2-12.0); Platelet Count 247 K/mm3 (150-450); RBC Distribution Width CV 16.9 % (11.6-14.6); RBC Distribution Width SD 53.5 fl (35.1-43.9); Red Blood Count 3.43 M/mm3 (4.6-6.2); White Blood Count 6.8 K/mm3 (4.4-11.0)
[2023-03-28 09:24] LABS: Anion Gap 6 (5-15); BUN 22 mg/dL (7-18); BUN/Creat Ratio 35.8 RATIO (10-20); Calcium,Total 9.9 mg/dL (8.5-10.1); Chloride 106 mmol/L (98-107); Creatinine, Serum 0.61 mg/dL (0.70-1.30); EST Glomerular Filtration Rate 139 mL/min (>60); Est Glom Filt Rate - Afr Amer 168 mL/min (>60); Glucose 134 mg/dL (74-106); Potassium 4.2 mmol/L (3.5-5.1); Sodium Level 139 mmol/L (136-145)
== END ==
LOC: OLS.SW 05:00
PROVIDERS: Visit Provider Internal Medicine
DX: C34.90 Malignant neoplasm of unspecified part of unspecified bronchus or lung (principal); E11.9 Type 2 diabetes mellitus without complications; E83.39 Other disorders of phosphorus metabolism
CPT/HCPCS: 36415; 80048; 85027